=== PATIENT | female | born 1950 | race American Indian/Alaskan Native ===

== ENCOUNTER 2022-04-17 11:59 | Inpatient (IN) | payer MEDICARE ==
[2022-04-17] MEDS ORDERED: ACETAMINOPHEN 325 MG TAB PO PRN ×2 (16:59→18:42)
[2022-04-17] MEDS ORDERED: HYDROcodone/ACETAMINOPHEN 5-325 MG TAB PO PRN ×2 (16:59→17:24)
[2022-04-17] MEDS ORDERED: BUTALB/ACETAMINOPHEN/CAFFEINE TAB PO PRN (17:04)
[2022-04-17] MEDS ORDERED: CYCLOBENZAPRINE 10 MG TAB PO PRN ×2 (17:04→18:33)
--- NOTE | 2022-04-17 17:27 | Event Note ---
Date: 04/17/22 All records have been reviewed and greater than 45 minutes was invested in record review. Also called outside hospital for clarification. Our pharmacy is having difficulty sourcing Cipro for the patient's UTI. Upon calling the outside hospital the nursing staff informed me that the culture showed normal beverley.Will obtain UA C&S upon admission to determine whether or not the patient truly has a urinary tract infection that needs to be treated and will treat appropriately if so. Otherwise this looks like possible skin beverley contaminant. All orders have been entered, discussed patient with nursing prior to arrival, will see patient in AM for H&P.
[2022-04-18] MEDS ORDERED: LEVOTHYROXINE 150 MCG TAB PO SCH (06:00)
[2022-04-18 06:28] LABS: Alanine Aminotransferase 15 units/L (7-56); Albumin 4.4 g/dL (3.9-5); BUN/Creatinine Ratio 22; Blood Urea Nitrogen 22 mg/dL (7-17); Calcium 9.7 mg/dL (8.4-10.2); Hemolysis Index 30
[2022-04-18 06:58] LABS: Bacteria,Urine 1+ /HPF (Negative); Mucus,Urine FEW /HPF
[2022-04-18] MEDS: LEVOTHYROXINE 150 MCG TAB PO SCH (07:06)
[2022-04-18 07:46] LABS: Bilirubin,Urine 1+ (Negative); Color,Urine Yellow (Yellow)
[2022-04-18 07:47] LABS: Blood,Urine 1+ (Negative); Urobilinogen,Urine 0.2 mg/dL (<2.0)
[2022-04-18 07:55] LABS: Ictotest,Urine Negative (Negative)
[2022-04-18 08:32] LABS: Eosinophils # (Auto) 0.1 K/mm3 (0.0-0.4); Eosinophils % (Auto) 2.1 % (0.0-4.3); Monocytes # (Auto) 0.4 K/mm3 (0.0-0.8); Monocytes % (Auto) 8.1 % (0.0-7.3)
[2022-04-18 08:48] LABS: Basophils % (Auto) 0.7 % (0.0-1.8); Hematocrit 33.7 % (30.3-42.9); Hemoglobin 10.9 gm/dl (10.1-14.3); Lymphocytes # (Auto) 1.4 K/mm3 (1.2-5.4); Lymphocytes % (Auto) 30.8 % (13.4-35.0); Mean Corpuscular HGB Conc 32 % (30-34); Mean Corpuscular Volume 97 fl (79-97); Red Blood Count 3.49 M/mm3 (3.65-5.03); Red Cell Distribution Width 15.5 % (13.2-15.2)
[2022-04-18] MEDS: hydroCHLOROthiazide 12.5 MG CAP PO SCH (09:10)
[2022-04-18] MEDS: LOSARTAN 50 MG TAB PO SCH (09:10)
[2022-04-18] MEDS: amLODIPine 10 MG TAB PO SCH (09:11)
--- NOTE | 2022-04-18 09:51 | History and Physical Report ---
History of Present Illness Date: 04/18/22 Date of admission: 04/18/22 04:24 Chief Complaint: Right parietal intracerebral hemorrhage History of present illness: 71-year-old female who presented to [facility] with left-sided weakness after originally going to urgent care for knee pain. She became dizzy and was off balance at urgent care and was sent to [facility]. Noted to have left- sided weakness and the CT head showed a small right parietal intracerebral hemorrhage. Blood pressure was elevated to a high of 213 systolic. Patient was started on Cardene drip and blood pressure was controlled. CT head showed hyperdensities at bilateral parietal lobes and left inferior frontal lobe encephalomalacia. CTA head neck showed no significant abnormalities. MRI brain showed acute hemorrhage in the posterior parietal lobes and multiple areas of suspected old intracranial hemorrhages along with a older deep left frontal lobe infarct. At some point, patient was complaining of dysuria at the outside hospital, she was started on Cipro. Unfortunately Cipro was not available currently at this hospital. Nursing staff at outside hospital was contacted to obtain urine culture and sensitivity results however staff told me that normal skin beverley grew out. No records are available other than what was given verbally. UA C&S was obtained upon admission, appears to show 1+ blood, bacteria and leukocyte esterase. We will await culture results and treat if needed. Unfortunately patient arrived at 4 AM, she was scheduled for 6 PM yesterday afternoon. She does state that she is tired, did not get much sleep and has had issues with the call light since arriving. Have discussed with staff and they have requested maintenance investigate the call light issues. After the patient was medically stabilized they were transferred for further rehabilitation. All available medical records have been reviewed. Plan of care was discussed with patient. Past History Past Medical History: arthritis, CAD, hypertension, hypothyroidism, migraines Past Surgical History: Other (Several abdominal surgeries including ex lap) Social history: lives with family. denies: smoking, alcohol abuse Family history: CAD, hypertension, stroke Medications and Allergies Allergies Allergy/AdvReac Type Severity Reaction Status Date / Time No Known Allergies Allergy Unverified 04/17/22 18:17 Active Meds: Active Medications Acetaminophen (Acetaminophen 325 Mg Tab) 650 mg PO Q4H PRN PRN Reason: Pain, Mild (1-3), FEVER 100.5 Acetaminophen/Butalbital/Caffeine (Butalb/Acetaminophen/Caffeine Tab) 1 tab PO Q6H PRN PRN Reason: Headache Hydrocodone Bitart/Acetaminophen (Hydrocodone/Acetaminophen 5-325 Mg Tab) 1 each PO Q6H PRN PRN Reason: Pain, Moderate (4-6) Amlodipine Besylate (Amlodipine 10 Mg Tab) 10 mg PO QDAY [facility] Last Admin: 04/18/22 09:11 Dose: 10 mg Atorvastatin Calcium (Atorvastatin 20 Mg Tab) 20 mg PO QHS [facility] Last Admin: 04/18/22 08:00 Dose: Not Given Cyclobenzaprine HCl (Cyclobenzaprine 10 Mg Tab) 10 mg PO QHS PRN PRN Reason: Muscle Spasm Hydrochlorothiazide (Hydrochlorothiazide 12.5 Mg Cap) 12.5 mg PO QDAY [facility] Last Admin: 04/18/22 09:10 Dose: 12.5 mg Levothyroxine Sodium (Levothyroxine 150 Mcg Tab) 300 mcg PO DAILY@0600 [facility] Last Admin: 04/18/22 07:06 Dose: 300 mcg Losartan Potassium (Losartan 50 Mg Tab) 50 mg PO QDAY [facility] Last Admin: 04/18/22 09:10 Dose: 50 mg Review of Systems All systems: negative (ROS negative for 10 systems except as noted below with pertinent positives and negatives.) Constitutional: no fever, no chills Ears, nose, mouth and throat: headache, no decreased hearing Cardiovascular: no chest pain, no rapid/irregular heart beat, no edema Respiratory: no cough, no shortness of breath Gastrointestinal: no nausea, no diarrhea, no constipation Genitourinary Female: dysuria (Previously, seems resolved now) Musculoskeletal: arthritis, no arm numbness/tingling, no leg numbness/tingling Integumentary: no rash, no pruritis, no wounds Neurological: ataxia, lack of coordination, gait dysfunction Psychiatric: no memory loss, no confusion Exam - Exam Narrative exam: MUSCULOSKELETAL SPECIALTY EXAM CONSTITUTIONAL: Well developed, well nourished, appropriately groomed, obese. RIGHT hand dominant. LYMPHATIC: No appreciable abnormalities palpable in neck RESPIRATORY: Clear to auscultation bilaterally, no increased work of breathing CARDIOVASCULAR: Regular Rate/ Rhythm, no swelling, edema or tenderness in BUE or BLE. Pulses palpable in all extremities. All extremities warm. GI: + bowel sounds, soft, NTTP, nondistended. INTEGUMENTARY: Normal, no lesion, rash, masses or bruising noted in extremities. MUSCULOSKELETAL: Tenderness to palpation in bilateral knees at medial joint line and anterior. Otherwise, BUE and BLE normal without defect, crepitus, subluxation, effusion, arthritic changes or TTP. R 4+ /5 L 4+ /5 ROM within normal limit Tone within normal limit NEURO: CN II : Visual jones full to confrontation CN II, III : PERRL CN III, IV, : EOMI CN V : Facial sensation intact CN VII : Left facial droop CN VIII : Hearing intact to finger rustle CN IX, X : Palate/uvula elevate midline, phonation normal CN XI : Intact shoulder shrug and head rotation CN XII : Tongue protrudes midline Sensation intact in all extremities without extinction. Reflexes 2+ bilaterally at biceps, brachioradialis and patella. No clonus at ankles. Coordination impaired on the right upper extremity, normal on the left, no dysmetria noted. No tremor noted in 4 extremities. Naming and repetition intact. Follows 2 step commands. Aphasia not appreciated Dysarthria not appreciated Dysphagia not appreciated Neglect not appreciated POSTURE and GAIT: Sitting posture good. Balance and gait deferred until seen with therapy. PSYCH: Alert, oriented x3, affect appears euthymic. Insight appears intact. - Constitutional Vitals: Vital Signs - 12hr 04/18/22 04/18/22 04/18/22 04:00 04:42 09:04 Temperature 98.2 F 98.5 F Pulse Rate 82 84 Respiratory 16 18 Rate Blood Pressure 154/93 Blood Pressure 135/88 [Left] O2 Sat by Pulse 98 98 99 Oximetry 04/18/22 09:10 Temperature Pulse Rate Respiratory Rate Blood Pressure 154/93 Blood Pressure [Left] O2 Sat by Pulse Oximetry - Labs CBC & Chem 7: 04/18/22 05:04 04/18/22 05:04 Labs: Laboratory Results - last 72 hr 04/17/22 04/18/22 04/18/22 04:50 05:04 05:04 WBC 4.7 RBC 3.49 L Hgb 10.9 Hct 33.7 MCV 97 MCH 31 MCHC 32 RDW 15.5 H Lymph % (Auto) 30.8 [place] % (Auto) 8.1 H Eos % (Auto) 2.1 Baso % (Auto) 0.7 Lymph # (Auto) 1.4 [place] # (Auto) 0.4 Eos # (Auto) 0.1 Baso # (Auto) 0.0 Seg Neutrophils % 58.3 Seg Neutrophils # 2.7 Sodium 146 H Potassium 4.2 Chloride 109.0 H Carbon Dioxide 25 Anion Gap 16 BUN 22 H Creatinine 1.0 Estimated GFR > 60 BUN/Creatinine Ratio 22 Glucose 98 Calcium 9.7 Total Bilirubin < 0.20 AST 26 ALT 15 Alkaline Phosphatase 69 Total Protein 7.9 Albumin 4.4 Albumin/Globulin Ratio 1.3 Urine Color Yellow Urine Turbidity Clear Urine pH 6.0 Ur Specific [place] 1.015 Urine Protein 30 mg/dl Urine Glucose (UA) Negative Urine Ketones 1+ Urine Blood 1+ Urine Nitrite Negative Ur Reducing Substances Not Reportable Urine Bilirubin 1+ Urine Ictotest Negative Urine Urobilinogen 0.2 Ur Leukocyte Esterase 1+ Urine WBC (Auto) 2.0 Urine RBC (Auto) 12.0 U Epithel Cells (Auto) 3.0 Urine Bacteria (Auto) 1+ Urine Mucus Few Assessment and Plan Assessment and plan: Patient was assessed and evaluated for Acute Inpatient Rehab Unit. Due to the patients above-mentioned medical complexity, along with decreased functional mobility and self care, this patient continues to require and be appropriate for a comprehensive, multidisciplinary [id number] rehabilitation program. These needs cannot be met in an outpatient or other less intensive setting. The patient would continue to benefit from skilled therapy intervention for at least 3 hours per day, five days a week, with techniques specific to the needs of the patient to improve function, activities of daily living, and reintegration into the community. The patient continues to require: -- OT to improve ROM, self-care, and learn use of adaptive equipment -- PT to improve strength and balance, functional transfers, and ambulation with energy conservation techniques to improve functional mobility -- 24 hour RN to ensure and prevent skin breakdown, promote progressive independence while ensuring safety, ensure education regarding medications, and incorporation of the rehabilitation at the bedside -- 24 hour Agent Broker to coordinate this interdisciplinary program, and to manage/prevent complications as a result of the patients medical comorbidities. -Plan of care by day 4 -Weekly team conferences With such a program, there is a reasonable certainty that the goals individualized for this patient can be achieved within the specified length of stay. Intraparenchymal cerebral hemorrhage: Continue to monitor patient for worsening neurologic deficits. Control blood pressure closely. Avoid antithrombotics/anticoagulants. Patient will need to follow-up with neurology after discharge. Have discussed prognosis and recovery timeline with the patient. Continue PT/OT to improve patient's ability to perform mobility and ADLs with increasing independence with decreasing reliance on caregivers. Hypertension: Continue medication. Monitor blood pressure. Adjust medications as needed for normotension. Hold for hypotension. Goal SBP <140. Hypothyroidism: Continue medications. Monitor and adjust if needed. UTI?: Patient was started on Cipro for UTI at outside hospital. Apparently we have had an issue obtaining Cipro at this hospital as I was informed by pharmacy. Once I saw this I called the outside hospital to obtain the culture and sensitivity from the patient's UTI however nursing stated that the cultures showed normal skin beverley. Cultures were not sent with the patient when she admitted. I did order a UA with culture and sensitivity upon admission and the UA currently shows 1+ blood, leukocyte esterase, and bacteria.. Will await culture and sensitivity and treat if needed. Patient did state that she was having dysuria at the outside hospital but is denying any issues currently. Bilateral knee arthritis: Patient states that buckling of the knees was her primary issue that she had initially went to the urgent care for. She has received injections of steroids recently from her PCP which were not effective. I discussed knee OA and the prognosis/typical treatment modalities. We will obtain x-rays to see how bad this is. Recommend that the patient follow-up with orthopedics or interventional PM&R for further injections and consideration of viscosupplementation if appropriate. Arthritis may very well limit the patient's mobility and recovery with rehab. We will continue to monitor and treat with modalities as appropriate. Migraines: Continue Fioricet as needed. CAD: Monitor for any further issues. 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 ADL dysfunction: OT will work on improving ability to perform ADLs (including assistive devices) to increase independence and decrease caregiver burden and improve functional transfers and mobility training. Difficulty walking: PT will work on gait training and proper use of assistive devices and advance as appropriate to use of stairs and outside ambulation on uneven surfaces. Unsteadiness on feet: PT will work on improving static and dynamic sitting and standing balance as well as proper use of assistive devices to decrease risk of falls. Abnormality of gait: PT will work to improve safety and efficiency of gait through neuromotor training and gait training along with instruction on proper use of assistive devices. Muscle weakness: PT & OT will work on strengthening exercises to improve functional strength including mixture of closed and open kinetic chain exercises. Debility: PT & OT will work on improving overall functional status to improve participation with ADLs, mobility and social involvement. Fatigue: PT & OT will work on improving endurance through aerobic exercises and therapeutic activity while monitoring patients tolerance for activity and vital signs as needed. DVT ppx: Contraindicated due to hemorrhagic CVA Pain: Continue physical modalities in therapy and pain medications as needed to achieve functional pain control. Sleep: Monitor and address as needed. Bowel: Monitor and address as needed. Appetite: Monitor and address as needed. Discharge planning: Pending therapy progress and care plan meeting. Will continue discussion with therapy team, SW, patient and family. Restrictions/ Precautions: Falls WB status: FWB Functional Hx: ADLs: Independent Cognition: Independent Mobility: No AD Barriers to Discharge: Decreased mobility and ability to perform self care, balance deficits, weakness Estimated Length of Stay: 1014 days Discharge Destination: Home with family POST ADMISSION PHYSICIAN EVALUATION I have examined the patient and find that functional status, medical condition and appropriateness for IRF admission are essentially unchanged from those described in the preadmission screening. Will monitor for worsening neurologic function, recurrent cerebral hemorrhage, increasing weakness, dysphagia, dysarthria DVT/PE, bowel and bladder complications and complications due to hypertension, knee OA, and electrolyte abnormalities. Will attempt to avoid occurrence of these issues or treat them if they present themselves.
[2022-04-18] MEDS ORDERED: LOSARTAN 50 MG TAB PO SCH (10:00)
[2022-04-18] MEDS ORDERED: hydroCHLOROthiazide 12.5 MG CAP PO SCH (10:00)
[2022-04-18] MEDS ORDERED: amLODIPine 10 MG TAB PO SCH (10:00)
--- NOTE | 2022-04-18 10:57 | XRay Report ---
BILATERAL KNEES 6 VIEWS INDICATION / CLINICAL INFORMATION: Pain and buckling of the knees. COMPARISON: None available. FINDINGS: BONES and JOINT(S): No acute fracture or subluxation. 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 SOFT TISSUES: No significant abnormality. ADDITIONAL FINDINGS: None. IMPRESSION: 1. No acute findings. 2. Mild osteoarthritis. Signer Name: Tino Baptiste MD Signed: 04/18/2022 10:53 AM Workstation Name: [id number]
[2022-04-18] MEDS: BUTALB/ACETAMINOPHEN/CAFFEINE TAB PO PRN (11:01)
[2022-04-18 12:28] LABS: Platelet Count 236 K/mm3 (140-440)
[2022-04-19] MEDS: BUTALB/ACETAMINOPHEN/CAFFEINE TAB PO PRN ×3 (04:01→21:58)
[2022-04-19] MEDS: LEVOTHYROXINE 150 MCG TAB PO SCH (06:04)
[2022-04-19] MEDS: LOSARTAN 50 MG TAB PO SCH (09:03)
[2022-04-19] MEDS: hydroCHLOROthiazide 12.5 MG CAP PO SCH (09:03)
[2022-04-19] MEDS: amLODIPine 10 MG TAB PO SCH (09:03)
[2022-04-20] MEDS: LEVOTHYROXINE 150 MCG TAB PO SCH (05:37)
[2022-04-20 06:31] LABS: Hematocrit 35.1 % (30.3-42.9); Hemoglobin 11.3 gm/dl (10.1-14.3); Mean Corpuscular HGB Conc 32 % (30-34); Mean Corpuscular Volume 96 fl (79-97); Platelet Count 281 K/mm3 (140-440); Red Blood Count 3.65 M/mm3 (3.65-5.03); Red Cell Distribution Width 15.3 % (13.2-15.2)
[2022-04-20 06:44] LABS: BUN/Creatinine Ratio 23; Blood Urea Nitrogen 21 mg/dL (7-17); Hemolysis Index 2
--- NOTE | 2022-04-20 08:15 | Progress Note ---
Subjective Date of service: 04/20/22 Principal diagnosis: Right parietal intracerebral hemorrhage Interval history: 71-year-old female who presented to [facility] with left-sided weakness afte r originally going to urgent care for knee pain. She became dizzy and was off balance at urgent care and was sent to [facility]. Noted to have left-sided weakness and the CT head showed a small right parietal intracerebral hemorrhage. Blood pressure was elevated to a high of 213 systolic. Patient was started on Cardene drip and blood pressure was controlled. CT head showed hyperdensities at bilateral parietal lobes and left inferior frontal lobe encephalomalacia. CTA head neck showed no significant abnormalities. MRI brain showed acute hemorrhage in the posterior parietal lobes and multiple areas of suspected old intracranial hemorrhages along with a older deep left frontal lobe infarct. At some point, patient was complaining of dysuria at the outside hospital, she was started on Cipro. Unfortunately Cipro was not available currently at this hospital. Nursing staff at outside hospital was contacted to obtain urine culture and sensitivity results however staff told me that normal skin beverley grew out. No records are available other than what was given verbally. UA C&S was obtained upon admission, appears to show 1+ blood, bacteria and leukocyte esterase. We will await culture results and treat if needed. Unfortunately patient arrived at 4 AM, she was scheduled for 6 PM yesterday afternoon. She does state that she is tired, did not get much sleep and has had issues with the call light since arriving. Have discussed with staff and they have requested maintenance investigate the call light issues. After the patient was medically stabilized they were transferred for further rehabilitation. All available medical records have been reviewed. Plan of care was discussed with patient. Interval History: Patient is participating in therapy and making reasonable progress. Taking rest breaks as needed. -BM. Denies pain, palpitations, dyspnea, cough, N/V, weakness. States knee pain is better today. Patient had a lot of questions this morning about the possibility of going home and how quickly she would be able to go home. In total, 37 minutes was invested in patient care today with greater than 50% of that time being spent counseling the patient. Intraparenchymal cerebral hemorrhage: Neurologically stable. No signs of worsening neurologic changes. Continue to monitor Hypertension: Stable and within good range. Continue to monitor and adjust medications for goal blood pressure less than 140/90. Hypothyroidism: Continue medications, stable UTI?: No growth to date on repeat urine. We will hold off starting antibiotics Bilateral knee arthritis: X-rays reviewed, appears very mild. Discussed with patient and will start Voltaren gel bilaterally. Grind test negative bilaterally. Recommend follow-up with interventional PM&R or orthopedics for consideration of injections Migraines: Continue Fioricet as needed Constipation: Medications available, have scheduled bisacodyl. Monitor for CAD: Patient unable to take aspirin currently, monitor for any worsening symptoms ADL and mobility deficits: Balance is very poor, patient is up and moving around in the room independently. Have cautioned her against getting up without the rapy/staff being available. Continue work with therapy to improve independence All records, vitals, labs and medications were reviewed. No other issues per patient, nursing or therapy. Objective - Exam Narrative Exam: MUSCULOSKELETAL SPECIALTY EXAM CONSTITUTIONAL: Well developed, well nourished, appropriately groomed, obese. RIGHT hand dominant. RESPIRATORY: Clear to auscultation bilaterally, no increased work of breathing CARDIOVASCULAR: Regular Rate/ Rhythm, no swelling, edema or tenderness in BUE or BLE. All extr emities warm. GI: + bowel sounds, soft, NTTP, nondistended. INTEGUMENTARY: Normal, no lesion, rash, masses or bruising noted in extremities. MUSCULOSKELETAL: Tenderness to palpation in bilateral knees at medial joint line and anterior, grind test negative bilaterally. Otherwise, BUE and BLE normal without defect, crepitus, subluxation, effusion, arthritic changes or TTP. R 4+ /5 L 4+ /5 ROM within normal limit Tone within normal limit NEURO: CN VII : Left facial droop Sensation intact in all extremities without extinction. No tremor noted in 4 extremities. Naming and repetition intact. Follows 2 step commands. Aphasia not appreciated Dysarthria not appreciated Dysphagia not appreciated Neglect not appreciated POSTURE and GAIT: Sitting posture good. Balance and gait deferred until seen with therapy. PSYCH: Alert, oriented x3, affect appears euthymic. Insight appears intact. - Constitutional Vitals: Vital Signs - 12hr 04/19/22 04/19/22 21:39 23:00 Temperature 98.1 F Pulse Rate 81 Blood Pressure 134/88 [Left] O2 Sat by Pulse 6 L Oximetry - Allied health notes Allied health notes reviewed: nursing, PT, OT FIMS assessment as documented by PT/OT/ST: Transfers Bed/Chair/Wheelchair Transfers 4. Minimal Assistance (Patient = 75% or more. FIM Score Needs touching.) Toilet Transfers FIM Score 5. Supervision (Needs supervision or cueing.) Locomotion- Stairs Stairs FIM Score 2. Maximal Assistance (Patient = 25% or more, 4- 6 stairs.) Locomotion- walk/wheelchair Ambulation Distance 50 Walking FIM Score 2. Maximal Assistance (Patient = 25% or more. Minimum of 50 ft.) Wheelchair FIM Score 2. Maximal Assistance (Patient = 25% or more. Minimum of 50 ft.) - Labs CBC & Chem 7: 04/20/22 05:57 04/20/22 05:57 Labs: Laboratory Results - last 72 hr 04/17/22 04/18/22 04/18/22 04:50 05:04 05:04 WBC 4.7 RBC 3.49 L Hgb 10.9 Hct 33.7 MCV 97 MCH 31 MCHC 32 RDW 15.5 H Plt Count 236 Lymph % (Auto) 30.8 [place] % (Auto) 8.1 H Eos % (Auto) 2.1 Baso % (Auto) 0.7 Lymph # (Auto) 1.4 [place] # (Auto) 0.4 Eos # (Auto) 0.1 Baso # (Auto) 0.0 Seg Neutrophils % 58.3 Seg Neutrophils # 2.7 Sodium 146 H Potassium 4.2 Chloride 109.0 H Carbon Dioxide 25 Anion Gap 16 BUN 22 H Creatinine 1.0 Estimated GFR > 60 BUN/Creatinine Ratio 22 Glucose 98 Calcium 9.7 Total Bilirubin < 0.20 AST 26 ALT 15 Alkaline Phosphatase 69 Total Protein 7.9 Albumin 4.4 Albumin/Globulin Ratio 1.3 Urine Color Yellow Urine Turbidity Clear Urine pH 6.0 Ur Specific [place] 1.015 Urine Protein 30 mg/dl Urine Glucose (UA) Negative Urine Ketones 1+ Urine Blood 1+ Urine Nitrite Negative Ur Reducing Substances Not Reportable Urine Bilirubin 1+ Urine Ictotest Negative Urine Urobilinogen 0.2 Ur Leukocyte Esterase 1+ Urine WBC (Auto) 2.0 Urine RBC (Auto) 12.0 U Epithel Cells (Auto) 3.0 Urine Bacteria (Auto) 1+ Urine Mucus Few 04/20/22 04/20/22 05:57 05:57 WBC 4.4 L RBC 3.65 Hgb 11.3 Hct 35.1 MCV 96 MCH 31 MCHC 32 RDW 15.3 H Plt Count 281 Lymph % (Auto) [place] % (Auto) Eos % (Auto) Baso % (Auto) Lymph # (Auto) [place] # (Auto) Eos # (Auto) Baso # (Auto) Seg Neutrophils % Seg Neutrophils # Sodium 143 Potassium 4.0 Chloride 102.4 Carbon Dioxide 28 Anion Gap 17 BUN 21 H Creatinine 0.9 Estimated GFR > 60 BUN/Creatinine Ratio 23 Glucose 98 Calcium 10.0 Total Bilirubin AST ALT Alkaline Phosphatase Total Protein Albumin Albumin/Globulin Ratio Urine Color Urine Turbidity Urine pH Ur Specific [place] Urine Protein Urine Glucose (UA) Urine Ketones Urine Blood Urine Nitrite Ur Reducing Substances Urine Bilirubin Urine Ictotest Urine Urobilinogen Ur Leukocyte Esterase Urine WBC (Auto) Urine RBC (Auto) U Epithel Cells (Auto) Urine Bacteria (Auto) Urine Mucus Assessment and Plan Intraparenchymal cerebral hemorrhage: Continue to monitor patient for worsening neurologic deficits. Control blood pressure closely. Avoid antithrombotics/anticoagulants. Patient will need to follow-up with neurology after discharge. Have discussed prognosis and recovery timeline with the patient. Continue PT/OT to improve patient's ability to perform mobility and ADLs with increasing independence with decreasing reliance on caregivers. Hypertension: Continue medication. Monitor blood pressure. Adjust medications as needed for normotension. Hold for hypotension. Goal SBP <140. Hypothyroidism: Continue medications. Monitor and adjust if needed. UTI?: Patient was started on Cipro for UTI at outside hospital. Apparently we have had an issue obtaining Cipro at this hospital as I was informed by pharmacy. Once I saw this I called the outside hospital to obtain the culture and sensitivity from the patient's UTI however nursing stated that the cultures showed normal skin beverley. Cultures were not sent with the patient when she admitted. I did order a UA with culture and sensitivity upon admission and the UA currently shows 1+ blood, leukocyte esterase, and bacteria.. Will await culture and sensitivity and treat if needed. Patient did state that she was having dysuria at the outside hospital but is denying any issues currently. Bilateral knee arthritis: Patient states that buckling of the knees was her primary issue that she had initially went to the urgent care for. She has received injections of steroids recently from her PCP which were not effective. I discussed knee OA and the prognosis/typical treatment modalities. Recommend that the patient follow-up with orthopedics or interventional PM&R for further steroid injections and consideration of viscosupplementation if appropriate. We will continue to monitor and treat with modalities as appropriate. Voltaren gel ordered, x-rays reviewed and show mild arthritis bilaterally Migraines: Continue Fioricet as needed. CAD: Monitor for any further issues. 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 ADL dysfunction: OT will work on improving ability to perform ADLs (including assistive devices) to increase independence and decrease caregiver burden and improve functional transfers and mobility training. Difficulty walking: PT will work on gait training and proper use of assistive devices and advance as appropriate to use of stairs and outside ambulation on uneven surfaces. Unsteadiness on feet: PT will work on improving static and dynamic sitting and standing balance as well as proper use of assistive devices to decrease risk of falls. Abnormality of gait: PT will work to improve safety and efficiency of gait through neuromotor training and gait training along with instruction on proper use of assistive devices. Muscle weakness: PT & OT will work on strengthening exercises to improve functional strength including mixture of closed and open kinetic chain exercises. Debility: PT & OT will work on improving overall functional status to improve participation with ADLs, mobility and social involvement. Fatigue: PT & OT will work on improving endurance through aerobic exercises and therapeutic activity while monitoring patients tolerance for activity and vital signs as needed. DVT ppx: Contraindicated due to hemorrhagic CVA Pain: Continue physical modalities in therapy and pain medications as needed to achieve functional pain control. Sleep: Monitor and address as needed. Bowel: Monitor and address as needed. Medications have been scheduled and as ne eded medications are available as well, monitor Appetite: Monitor and address as needed. Discharge planning: Pending therapy progress and care plan meeting. Will continue discussion with therapy team, SW, patient and family. Restrictions/ Precautions: Falls WB status: FWB Functional Hx: ADLs: Independent Cognition: Independent Mobility: No AD Barriers to Discharge: Decreased mobility and ability to perform self care, balance deficits, weakness Estimated Length of Stay: 1014 days Discharge Destination: Home with family
[2022-04-20] MEDS ORDERED: POLYETHYLENE GLYCOL 3350 17 GM POWDER PO PRN (10:00)
[2022-04-20] MEDS: amLODIPine 10 MG TAB PO SCH (12:40)
[2022-04-20] MEDS: LOSARTAN 50 MG TAB PO SCH (12:40)
[2022-04-20] MEDS: hydroCHLOROthiazide 12.5 MG CAP PO SCH (12:40)
[2022-04-20] MEDS: BUTALB/ACETAMINOPHEN/CAFFEINE TAB PO PRN ×2 (12:41→21:55)
[2022-04-20] MEDS: DICLOFENAC SODIUM 1% TOPICAL GEL 100 GM TP SCH ×2 (18:37→21:48)
[2022-04-21] MEDS: LEVOTHYROXINE 150 MCG TAB PO SCH (07:54)
[2022-04-21] MEDS: DICLOFENAC SODIUM 1% TOPICAL GEL 100 GM TP SCH ×3 (07:55→23:03)
[2022-04-21] MEDS: BUTALB/ACETAMINOPHEN/CAFFEINE TAB PO PRN ×2 (08:00→22:59)
[2022-04-21] MEDS: amLODIPine 10 MG TAB PO SCH (15:08)
[2022-04-21] MEDS: LOSARTAN 50 MG TAB PO SCH (15:08)
[2022-04-21] MEDS: hydroCHLOROthiazide 12.5 MG CAP PO SCH (15:09)
--- NOTE | 2022-04-21 16:01 | Progress Note ---
Subjective Date of service: 04/21/22 Principal diagnosis: Right parietal intracerebral hemorrhage Interval history: 71-year-old female who presented to [facility] with left-sided weakness afte r originally going to urgent care for knee pain. She became dizzy and was off balance at urgent care and was sent to [facility]. Noted to have left-sided weakness and the CT head showed a small right parietal intracerebral hemorrhage. Blood pressure was elevated to a high of 213 systolic. Patient was started on Cardene drip and blood pressure was controlled. CT head showed hyperdensities at bilateral parietal lobes and left inferior frontal lobe encephalomalacia. CTA head neck showed no significant abnormalities. MRI brain showed acute hemorrhage in the posterior parietal lobes and multiple areas of suspected old intracranial hemorrhages along with a older deep left frontal lobe infarct. At some point, patient was complaining of dysuria at the outside hospital, she was started on Cipro. Unfortunately Cipro was not available currently at this hospital. Nursing staff at outside hospital was contacted to obtain urine culture and sensitivity results however staff told me that normal skin beverley grew out. No records are available other than what was given verbally. UA C&S was obtained upon admission, appears to show 1+ blood, bacteria and leukocyte esterase. We will await culture results and treat if needed. Unfortunately patient arrived at 4 AM, she was scheduled for 6 PM yesterday afternoon. She does state that she is tired, did not get much sleep and has had issues with the call light since arriving. Have discussed with staff and they have requested maintenance investigate the call light issues. After the patient was medically stabilized they were transferred for further rehabilitation. All available medical records have been reviewed. Plan of care was discussed with patient. Interval History: Patient is participating in therapy and making reasonable progress. Taking rest breaks as needed. -BM. Denies pain, palpitations, dyspnea, cough, N/V, weakness. Intraparenchymal cerebral hemorrhage: Neurologically stable. No signs of worsening neurologic changes. Continue to monitor Hypertension: Stable and within good range. Continue to monitor and adjust medications for goal blood pressure less than 140/90. Hypothyroidism: Continue medications, stable UTI?: No growth to date on repeat urine. We will hold off starting antibiotics Bilateral knee arthritis: X-rays reviewed, appears very mild. Discussed with patient and started Voltaren gel bilaterally, seems to be working fairly well. Grind test negative bilaterally. Recommend follow-up with interventional PM&R or orthopedics for consideration of injections Migraines: Continue Fioricet as needed Constipation: Medications available, have scheduled bisacodyl. Monitor for CAD: Patient unable to take aspirin currently, monitor for any worsening symptoms ADL and mobility deficits: Balance is very poor, patient is up and moving around in the room independently. Have cautioned her against getting up without therapy/staff being available. Continue work with therapy to improve independence All records, vitals, labs and medications were reviewed. No other issues per patient, nursing or therapy. Patient discussed during team conference today. Making reasonable progress and is able to ambulate with a rolling walker. 08/26 on [place]. Mostly contact- guard with ADLs. Still has some issues with balance and buckling of the knees. We will continue working with the patient to improve her ability to perform ADLs and self-care and mobility as independently as possible in order to discharge her safely home. In total, 39 minutes was invested in patient care today including greater than 50% of that time counseling the patient on her condition and coordinating care with staff to determine further needed therapy. We will likely look to discharge patient sometime next week pending her continued improvement. Patient does state that she feels more comfortable with a rolling walker versus a cane Objective - Exam Narrative Exam: MUSCULOSKELETAL SPECIALTY EXAM CONSTITUTIONAL: Well developed, well nourished, appropriately groomed, obese. RIGHT hand dominant. RESPIRATORY: Clear to auscultation bilaterally, no increased work of breathing CARDIOVASCULAR: Regular Rate/ Rhythm, no swelling, edema or tenderness in BUE or BLE. All extremities warm. GI: + bowel sounds, soft, NTTP, nondistended. INTEGUMENTARY: Normal, no lesion, rash, masses or bruising noted in extremities. MUSCULOSKELETAL: Tenderness to palpation in bilateral knees at medial joint line and anterior. Otherwise, BUE and BLE normal without defect, crepitus, subluxation, effusion, arthritic changes or TTP. R 4+ /5 L 4+ /5 ROM within normal limit Tone within normal limit NEURO: CN VII : Left facial droop Sensation intact in all extremities without extinction. No tremor noted in 4 extremities. Naming and repetition intact. Follows 2 step commands. Aphasia not appreciated Dysarthria not appreciated Dysphagia not appreciated Neglect not appreciated POSTURE and GAIT: Sitting posture good. PSYCH: Alert, oriented x3, affect appears euthymic. Insight appears intact. - Allied health notes Allied health notes reviewed: nursing, PT, OT FIMS assessment as documented by PT/OT/ST: Transfers Bed/Chair/Wheelchair Transfers 4. Minimal Assistance (Patient = 75% or more. FIM Score Needs touching.) Toilet Transfers FIM Score 5. Supervision (Needs supervision or cueing.) Locomotion- Stairs Stairs FIM Score 2. Maximal Assistance (Patient = 25% or more, 4- 6 stairs.) Locomotion- walk/wheelchair Ambulation Distance 50 Walking FIM Score 2. Maximal Assistance (Patient = 25% or more. Minimum of 50 ft.) Wheelchair FIM Score 2. Maximal Assistance (Patient = 25% or more. Minimum of 50 ft.) - Labs CBC & Chem 7: 04/20/22 05:57 04/20/22 05:57 Labs: Laboratory Results - last 72 hr 04/20/22 04/20/22 05:57 05:57 WBC 4.4 L RBC 3.65 Hgb 11.3 Hct 35.1 MCV 96 MCH 31 MCHC 32 RDW 15.3 H Plt Count 281 Sodium 143 Potassium 4.0 Chloride 102.4 Carbon Dioxide 28 Anion Gap 17 BUN 21 H Creatinine 0.9 Estimated GFR > 60 BUN/Creatinine Ratio 23 Glucose 98 Calcium 10.0 Assessment and Plan Intraparenchymal cerebral hemorrhage: Continue to monitor patient for worsening neurologic deficits. Control blood pressure closely. Avoid antithrombotics/anticoagulants. Patient will need to follow-up with neurology after discharge. Have discussed prognosis and recovery timeline with the patient. Continue PT/OT to improve patient's ability to perform mobility and ADLs with increasing independence with decreasing reliance on caregivers. Hypertension: Continue medication. Monitor blood pressure. Adjust medications as needed for normotension. Hold for hypotension. Goal SBP <140. Hypothyroidism: Continue medications. Monitor and adjust if needed. UTI?: Patient was started on Cipro for UTI at outside hospital. Apparently we have had an issue obtaining Cipro at this hospital as I was informed by pharmacy. Once I saw this I called the outside hospital to obtain the culture and sensitivity from the patient's UTI however nursing stated that the cultures showed normal skin beverley. Cultures were not sent with the patient when she admitted. I did order a UA with culture and sensitivity upon admission and the UA currently shows 1+ blood, leukocyte esterase, and bacteria.. Will await culture and sensitivity and treat if needed. Patient did state that she was having dysuria at the outside hospital but is denying any issues currently. Bilateral knee arthritis: Patient states that buckling of the knees was her primary issue that she had initially went to the urgent care for. She has received injections of steroids recently from her PCP which were not effective. I discussed knee OA and the prognosis/typical treatment modalities. Recommend that the patient follow-up with orthopedics or interventional PM&R for further steroid injections and consideration of viscosupplementation if appropriate. We will continue to monitor and treat with modalities as appropriate. Voltaren gel ordered, x-rays reviewed and show mild arthritis bilaterally Migraines: Continue Fioricet as needed. CAD: Monitor for any further issues. 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 ADL dysfunction: OT will work on improving ability to perform ADLs (including assistive devices) to increase independence and decrease caregiver burden and improve functional transfers and mobility training. Difficulty walking: PT will work on gait training and proper use of assistive devices and advance as appropriate to use of stairs and outside ambulation on uneven surfaces. Unsteadiness on feet: PT will work on improving static and dynamic sitting and standing balance as well as proper use of assistive devices to decrease risk of falls. Abnormality of gait: PT will work to improve safety and efficiency of gait through neuromotor training and gait training along with instruction on proper use of assistive devices. Muscle weakness: PT & OT will work on strengthening exercises to improve functional strength including mixture of closed and open kinetic chain exercises. Debility: PT & OT will work on improving overall functional status to improve participation with ADLs, mobility and social involvement. Fatigue: PT & OT will work on improving endurance through aerobic exercises and therapeutic activity while monitoring patients tolerance for activity and vital signs as needed. DVT ppx: Contraindicated due to hemorrhagic CVA Pain: Continue physical modalities in therapy and pain medications as needed to achieve functional pain control. Sleep: Monitor and address as needed. Bowel: Monitor and address as needed. Medications have been scheduled and as needed medications are available as well, monitor Appetite: Monitor and address as needed. Discharge planning: Pending therapy progress and care plan meeting. Will continue discussion with therapy team, SW, patient and family. Will likely discharge next week pending further improvement. Patient will need a rolling walker at this time. We will discuss further needs as we get closer to discharge. Restrictions/ Precautions: Falls WB status: FWB Functional Hx: ADLs: Independent Cognition: Independent Mobility: No AD Barriers to Discharge: Decreased mobility and ability to perform self care, balance deficits, weakness Estimated Length of Stay: 1014 days Discharge Destination: Home with family
--- NOTE | 2022-04-21 18:39 | IRU Plan of Care ---
Interdisciplinary Plan of Care - IPOC IRU INTERDISCIPLINARY PLAN: [facility] Inpatient Rehab Unit Plan of Care IRU Interdisciplinary Care Plan Start: 04/18/22 07:36 Freq: Status: Active Protocol: Document 04/21/22 16:25 TH (Rec: 04/21/22 16:32 TH [id number]) IRU Interdisciplinary Care Plan Therapy Services Therapy Services Will Include: Physical Therapy,Occupational Query Text:Patient will be seen for a Therapy minimum of 3 hours of daily therapy 5 out of 7 days a week. Therapy intensity may be adjusted within a 7 consecutive day period to effectively serve the individual needs of the patient. Treatment Frequency/Intensity/Duration Treatment Frequency 5x/week Treatment Intensity 3 HOURS PER DAY Treatment Duration 10-14 DAYS Problem Area: Eating/Swallowing Eating/Swallowing Outcomes Eating/Swallowing Interventions Problem Area: Bathing/Grooming Bathing/Grooming Outcomes Improve Cook w/ Grooming,Improve Cook w/ Bathing Bathing/Grooming Interventions ADL Training,Use of Assistive Devices,Therapeutic Exercise, Therapeutic Activity, Neuromuscular Re-Education, Balance Work,Activity Tolerance Work,Patient/ Caregiver Education Problem Area: Dressing Dressing Outcomes Improve Cook w/ UB Dressing,Improve Cook w/ LB Dressing Dressing Outcomes Improve Cook w/ UB Dressing,Improve Cook w/ LB Dressing Problem Area: Mobility Mobility Outcomes Improve Cook w/ Bed Mobility,Improve Cook w/ Ambulation,Improve Cook w/ Stairs/Curb, Improve Cook w/ Wheelchair Mobility Interventions Therapeutic Exercise, Neuromuscular Re-Ed.,Use of Assistive Devices,Patient/ Caregiver Education,Bed Mobility Work,Gait Training,W/ C Mobility Work Problem Area: Transfers Transfers Outcomes Improve Cook w/ Bed Transfers,Improve Cook w/ Toilet Transfers,Improve Cook w/ Tub/Shower Transfers,Improve Cook w/ Car Transfers Transfers Interventions Transfer Training,Therapeutic Exercise,Neuromuscular Re- Education,Visual/Perceptual Training,Activity Tolerance Work,Modalities,Use of Assistive Devices,Patient/ Caregiver Education Problem Area: Bowel/Bladder Managment Bowel/Bladder Outcomes Bowel/Bladder Interventions Problem Area: Toileting Toileting Outcomes Improve Cook w/ Toileting Toileting Interventions ADL Training,Balance Work,Use of Assistive Devices,Patient/ Caregiver Education Problem Area: Nutrition Nutrition Outcomes Nutrition Interventions Problem Area: Comprehension Comprehension Outcomes Comprehension Interventions Problem Area: Expression Expression Outcomes Expression Interventions Problem Area: Problem Solving Problem Solving Outcomes Problem Solving Interventions Problem Area: Memory Memory Outcomes Memory Interventions Problem Area: Pain Management Pain Management Outcomes Demonstrate/Verbalize Pain Strategies Pain Management Interventions Medication Management,Stress Management,Positioning/Turning ,Patient/Caregiver Education Problem Area: Knowledge Deficits Knowledge Deficits Outcomes Verbalize Understanding of S/S of Stroke Knowledge Deficits Interventions Disease/Injury/Sx. Intervention Education, Medication Use Education,Body Mechanics/Joint Protection Education,Health Maintainence Education,Safety Education, Energy Conservation Education Problem Area: Skin/Tissue Integrity Skin/Tissue Integrity Outcomes Skin/Tissue Integrity Interventions Problem Area: Social Interaction Social Interaction Outcomes Social Interaction Interventions Problem Area: Adjustment to Disability Adjustment to Disability Outcomes Adjustment to Disability Interventions Problem Area: Discharge Concerns Discharge Concerns Outcomes Discharge w/ Necessary Equipment,Have Home Health/ Outpatient Services Discharge Concerns Interventions Discharge Planning,Equipment Assessment, Acquisition and Placement,Family/Caregiver Training Problem Area: Community Reintegration Community Reintegration Outcomes Community Reintegration Interventions Problem Area: Home Management Home Management Outcomes Improve Cook w/ Home Management Home Management Interventions Meal Preparation,Clothing Care ,Activity Tolerance Work,House Cleaning,Shopping Problem Area: Safety Safety Outcomes Provide Safe Environment, Demonstrate Good Safety w/ Transfers/Mobility Safety Interventions Identify Fall Risk,[place] to Environment,Reduce Environmental Hazards Problem Area: Medication Education Medication Education Outcomes Patient/Caregiver will Verbalize Understanding of Medications Medication Education Interventions Explain Administration/Side Effects/Interactions Problem Area: Diabetes Education Diabetes Education Outcomes Diabetes Education Interventions Problem Area: Oxygenation Oxygenation Outcomes Oxygenation Interventions Problem Area: Cardiovascular Cardiovascular Outcomes Maintain or Improve Cardiovascular Status Cardiovascular Interventions Assess Vital Signs at least Every 4 hours,Cardiac Monitoring, EKG and ABG as Ordered. Physician Only Medical Prognosis and Rehabilitation Good prognosis, good rehab potential Potential (Completed by Physician) Interdisciplinary Problem List Interdisciplinary Problem List Interdisciplinary Problem List Impaired Bathing/Grooming, Query Text:Answers will Trigger Problems Impaired Dressing,Impaired and Outcomes on Worklist. Transfers,Impaired Toileting, Impaired Problem Solving,Pain Management This plan of care has been developed based on the findings from the pre- admission assessment, post admission physician evaluation, information gathered from the assessments from all therapy disciplines and other pertinent clinicians. The plan of care has been reviewed and discussed in collaboration with the interdisciplinary team. The plan of care will be reviewed and updated at least weekly.
[2022-04-22] MEDS: LEVOTHYROXINE 150 MCG TAB PO SCH (05:26)
--- NOTE | 2022-04-22 07:29 | Progress Note ---
Subjective Date of service: 04/22/22 Principal diagnosis: Right parietal intracerebral hemorrhage Interval history: 71-year-old female who presented to [facility] with left-sided weakness afte r originally going to urgent care for knee pain. She became dizzy and was off balance at urgent care and was sent to [facility]. Noted to have left-sided weakness and the CT head showed a small right parietal intracerebral hemorrhage. Blood pressure was elevated to a high of 213 systolic. Patient was started on Cardene drip and blood pressure was controlled. CT head showed hyperdensities at bilateral parietal lobes and left inferior frontal lobe encephalomalacia. CTA head neck showed no significant abnormalities. MRI brain showed acute hemorrhage in the posterior parietal lobes and multiple areas of suspected old intracranial hemorrhages along with a older deep left frontal lobe infarct. At some point, patient was complaining of dysuria at the outside hospital, she was started on Cipro. Unfortunately Cipro was not available currently at this hospital. Nursing staff at outside hospital was contacted to obtain urine culture and sensitivity results however staff told me that normal skin beverley grew out. No records are available other than what was given verbally. UA C&S was obtained upon admission, appears to show 1+ blood, bacteria and leukocyte esterase. We will await culture results and treat if needed. Unfortunately patient arrived at 4 AM, she was scheduled for 6 PM yesterday afternoon. She does state that she is tired, did not get much sleep and has had issues with the call light since arriving. Have discussed with staff and they have requested maintenance investigate the call light issues. After the patient was medically stabilized they were transferred for further rehabilitation. All available medical records have been reviewed. Plan of care was discussed with patient. Interval History: Patient is participating in therapy and making reasonable progress. Taking rest breaks as needed. -BM, bisacodyl is scheduled and MiraLAX is available, have discussed with patient. She is having flatus and denies nausea/vomiting.. Denies pain, palpitations, dyspnea, cough, N/V, weakness. Intraparenchymal cerebral hemorrhage: Neurologically stable. No signs of worsening neurologic changes. Continue to monitor Hypertension: Stable and within good range. Continue to monitor and adjust medications for goal blood pressure less than 140/90. Hypothyroidism: Continue medications, stable UTI?: No growth to date on repeat urine. We will hold off starting antibiotics Bilateral knee arthritis: X-rays reviewed, appears very mild. Discussed with patient and started Voltaren gel bilaterally, seems to be working fairly well. Grind test negative bilaterally. Recommend follow-up with interventional PM&R or orthopedics for consideration of injections Migraines: Continue Fioricet as needed Constipation: Medications available, have scheduled bisacodyl. Monitor for resolution CAD: Patient unable to take aspirin currently, monitor for any worsening symptoms ADL and mobility deficits: Balance is very poor, patient is up and moving around in the room independently. Have cautioned her against getting up without therapy/staff being available. Continue work with therapy to improve independence All records, vitals, labs and medications were reviewed. No other issues per patient, nursing or therapy. Objective - Exam Narrative Exam: MUSCULOSKELETAL SPECIALTY EXAM CONSTITUTIONAL: Well developed, well nourished, appropriately groomed, obese. RIGHT hand dominant. RESPIRATORY: Clear to auscultation bilaterally, no increased work of breathing CARDIOVASCULAR: Regular Rate/ Rhythm, no swelling, edema or tenderness in BUE or BLE. All extremities warm. GI: + bowel sounds, soft, NTTP, nondistended. INTEGUMENTARY: Normal, no lesion, rash, masses or bruising noted in extremities. MUSCULOSKELETAL: Tenderness to palpation in bilateral knees at medial joint line and anterior. Otherwise, BUE and BLE normal without defect, crepitus, subluxation, effusion, arthritic changes or TTP. R 4+ /5 L 4+ /5 ROM within normal limit Tone within normal limit NEURO: CN VII : Left facial droop Sensation intact in all extremities without extinction. No tremor noted in 4 extremities. Naming and repetition intact. Follows 2 step commands. Aphasia not appreciated Dysarthria not appreciated Dysphagia not appreciated Neglect not appreciated POSTURE and GAIT: Sitting posture good. Remains high fall risk, Tinetti Balance 08/26 PSYCH: Alert, oriented x3, affect appears euthymic. Insight appears intact. Does have decreased safety awareness at times, - Constitutional Vitals: Vital Signs - 12hr 04/21/22 04/21/22 04/22/22 21:51 23:00 05:03 Temperature 97.5 F L 97.7 F Pulse Rate 86 80 Respiratory 16 16 Rate Blood Pressure 118/80 Blood Pressure 127/79 [Left] O2 Sat by Pulse 97 99 98 Oximetry - Allied health notes Allied health notes reviewed: nursing, PT, OT FIMS assessment as documented by PT/OT/ST: Transfers Bed/Chair/Wheelchair Transfers 4. Minimal Assistance (Patient = 75% or more. FIM Score Needs touching.) Toilet Transfers FIM Score 5. Supervision (Needs supervision or cueing.) Locomotion- Stairs Stairs FIM Score 2. Maximal Assistance (Patient = 25% or more, 4- 6 stairs.) Locomotion- walk/wheelchair Ambulation Distance 50 Walking FIM Score 2. Maximal Assistance (Patient = 25% or more. Minimum of 50 ft.) Wheelchair FIM Score 2. Maximal Assistance (Patient = 25% or more. Minimum of 50 ft.) - Labs CBC & Chem 7: 04/20/22 05:57 04/20/22 05:57 Labs: Laboratory Results - last 72 hr 04/20/22 04/20/22 05:57 05:57 WBC 4.4 L RBC 3.65 Hgb 11.3 Hct 35.1 MCV 96 MCH 31 MCHC 32 RDW 15.3 H Plt Count 281 Sodium 143 Potassium 4.0 Chloride 102.4 Carbon Dioxide 28 Anion Gap 17 BUN 21 H Creatinine 0.9 Estimated GFR > 60 BUN/Creatinine Ratio 23 Glucose 98 Calcium 10.0 Assessment and Plan Intraparenchymal cerebral hemorrhage: Continue to monitor patient for worsening neurologic deficits. Control blood pressure closely. Avoid antithrombotics/anticoagulants. Patient will need to follow-up with neurology after discharge. Have discussed prognosis and recovery timeline with the patient. Continue PT/OT to improve patient's ability to perform mobility and ADLs with increasing independence with decreasing reliance on caregivers. Hypertension: Continue medication. Monitor blood pressure. Adjust medications as needed for normotension. Hold for hypotension. Goal SBP <140. Hypothyroidism: Continue medications. Monitor and adjust if needed. UTI?: Patient was started on Cipro for UTI at outside hospital. Apparently we have had an issue obtaining Cipro at this hospital as I was informed by pharmacy. Once I saw this I called the outside hospital to obtain the culture and sensitivity from the patient's UTI however nursing stated that the cultures showed normal skin beverley. Cultures were not sent with the patient when she admitted. I did order a UA with culture and sensitivity upon admission and the UA currently shows 1+ blood, leukocyte esterase, and bacteria.. Culture NGTD. Patient did state that she was having dysuria at the outside hospital but is denying any issues currently. Bilateral knee arthritis: Patient states that buckling of the knees was her primary issue that she had initially went to the urgent care for. She has received injections of steroids recently from her PCP which were not effective. I discussed knee OA and the prognosis/typical treatment modalities. Recommend that the patient follow-up with orthopedics or interventional PM&R for further steroid injections and consideration of viscosupplementation if appropriate. We will continue to monitor and treat with modalities as appropriate. Voltaren gel ordered, x-rays reviewed and show mild arthritis bilaterally Migraines: Continue Fioricet as needed. CAD: Monitor for any further issues. 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 Constipation: Medications scheduled and available as needed, denies any nausea vomiting. Passing flatus. Monitor ADL dysfunction: OT will work on improving ability to perform ADLs (including assistive devices) to increase independence and decrease caregiver burden and improve functional transfers and mobility training. Difficulty walking: PT will work on gait training and proper use of assistive devices and advance as appropriate to use of stairs and outside ambulation on uneven surfaces. Unsteadiness on feet: PT will work on improving static and dynamic sitting and standing balance as well as proper use of assistive devices to decrease risk of falls. Abnormality of gait: PT will work to improve safety and efficiency of gait through neuromotor training and gait training along with instruction on proper use of assistive devices. Muscle weakness: PT & OT will work on strengthening exercises to improve functional strength including mixture of closed and open kinetic chain exercises. Debility: PT & OT will work on improving overall functional status to improve participation with ADLs, mobility and social involvement. Fatigue: PT & OT will work on improving endurance through aerobic exercises and therapeutic activity while monitoring patients tolerance for activity and vital signs as needed. DVT ppx: Contraindicated due to hemorrhagic CVA Pain: Continue physical modalities in therapy and pain medications as needed to achieve functional pain control. Sleep: Monitor and address as needed. Bowel: Monitor and address as needed. Medications have been scheduled and as needed medications are available as well, monitor Appetite: Monitor and address as needed. Discharge planning: Pending therapy progress and care plan meeting. Will continue discussion with therapy team, SW, patient and family. Will likely discharge next week pending further improvement. Patient will need a rolling walker at this time. We will discuss further needs as we get closer to discharge. Restrictions/ Precautions: Falls WB status: FWB Functional Hx: ADLs: Independent Cognition: Independent Mobility: No AD Barriers to Discharge: Decreased mobility and ability to perform self care, balance deficits, weakness Estimated Length of Stay: 1014 days Discharge Destination: Home with family
[2022-04-22] MEDS: LOSARTAN 50 MG TAB PO SCH (10:25)
[2022-04-22] MEDS: amLODIPine 10 MG TAB PO SCH (10:25)
[2022-04-22] MEDS: BUTALB/ACETAMINOPHEN/CAFFEINE TAB PO PRN ×2 (10:25→21:43)
[2022-04-22] MEDS: hydroCHLOROthiazide 12.5 MG CAP PO SCH (10:25)
[2022-04-22] MEDS: DICLOFENAC SODIUM 1% TOPICAL GEL 100 GM TP SCH ×3 (10:31→21:43)
[2022-04-23] MEDS: LEVOTHYROXINE 150 MCG TAB PO SCH (06:04)
--- NOTE | 2022-04-23 07:50 | Progress Note ---
Subjective Date of service: 04/23/22 Principal diagnosis: Right parietal intracerebral hemorrhage Interval history: 71-year-old female who presented to [facility] with left-sided weakness afte r originally going to urgent care for knee pain. She became dizzy and was off balance at urgent care and was sent to [facility]. Noted to have left-sided weakness and the CT head showed a small right parietal intracerebral hemorrhage. Blood pressure was elevated to a high of 213 systolic. Patient was started on Cardene drip and blood pressure was controlled. CT head showed hyperdensities at bilateral parietal lobes and left inferior frontal lobe encephalomalacia. CTA head neck showed no significant abnormalities. MRI brain showed acute hemorrhage in the posterior parietal lobes and multiple areas of suspected old intracranial hemorrhages along with a older deep left frontal lobe infarct. At some point, patient was complaining of dysuria at the outside hospital, she was started on Cipro. Unfortunately Cipro was not available currently at this hospital. Nursing staff at outside hospital was contacted to obtain urine culture and sensitivity results however staff told me that normal skin beverley grew out. No records are available other than what was given verbally. UA C&S was obtained upon admission, appears to show 1+ blood, bacteria and leukocyte esterase. We will await culture results and treat if needed. Unfortunately patient arrived at 4 AM, she was scheduled for 6 PM yesterday afternoon. She does state that she is tired, did not get much sleep and has had issues with the call light since arriving. Have discussed with staff and they have requested maintenance investigate the call light issues. After the patient was medically stabilized they were transferred for further rehabilitation. All available medical records have been reviewed. Plan of care was discussed with patient. Interval History: Patient is participating in therapy and making reasonable progress. Taking rest breaks as needed. +BM, bisacodyl is scheduled and MiraLAX is available, have discussed with patient, patient states that she is now having hard stools and wants a softener added. She is having flatus and denies nausea/vomiting.. Denies pain, palpitations, dyspnea, cough, N/V, weakness. Intraparenchymal cerebral hemorrhage: Neurologically stable. No signs of worse raeann neurologic changes. Continue to monitor. Decreased safety awareness, patient found up in room again without help. I asked her if she needed help with anything and she stated no she was just going to the restroom. Hypertension: Stable and within good range. Continue to monitor and adjust me dications for goal blood pressure less than 140/90. Hypothyroidism: Continue medications, stable Bilateral knee arthritis: X-rays reviewed, appears very mild. Discussed with patient and started Voltaren gel bilaterally, seems to be working fairly well. Grind test negative bilaterally. Recommend follow-up with interventional PM&R or orthopedics for consideration of injections. No complaints of buckling currently Migraines: Continue Fioricet as needed Constipation: Medications available, have scheduled bisacodyl. Small bowel movement but very difficult to pass, requesting Colace monitor for resolution CAD: Patient unable to take aspirin currently, monitor for any worsening symptoms ADL and mobility deficits: Balance is very poor, patient is up and moving around in the room independently. Have cautioned her against getting up without therapy/staff being available. Continue work with therapy to improve independence All records, vitals, labs and medications were reviewed. No other issues per patient, nursing or therapy. Objective - Exam Narrative Exam: MUSCULOSKELETAL SPECIALTY EXAM CONSTITUTIONAL: Well developed, well nourished, appropriately groomed, obese. RIGHT hand dominant. RESPIRATORY: Clear to auscultation bilaterally, no increased work of breathing CARDIOVASCULAR: Regular Rate/ Rhythm, no swelling, edema or tenderness in BUE or BLE. All extremities warm. GI: + bowel sounds, soft, NTTP, nondistended. INTEGUMENTARY: Normal, no lesion, rash, masses or bruising noted in extremities. MUSCULOSKELETAL: Tenderness to palpation in bilateral knees at medial joint line and anterior. Otherwise, BUE and BLE normal without defect, crepitus, subluxation, effusion, arthritic changes or TTP. R 4+ /5 L 4+ /5 ROM within normal limit Tone within normal limit NEURO: CN VII : Left facial droop Sensation intact in all extremities without extinction. No tremor noted in 4 extremities. Naming and repetition intact. Follows 2 step commands. Aphasia not appreciated Dysarthria not appreciated Dysphagia not appreciated Neglect not appreciated POSTURE and GAIT: Sitting posture good. Remains high fall risk, Tinetti Balance 08/26 PSYCH: Alert, oriented x3, affect appears euthymic. Insight appears intact. Does have decreased safety awareness at times - Constitutional Vitals: Vital Signs - 12hr 04/22/22 04/22/22 04/23/22 21:16 23:00 03:20 Temperature 98.1 F 97.7 F Pulse Rate 84 83 Respiratory 14 18 16 Rate Blood Pressure 130/80 116/86 O2 Sat by Pulse 93 97 97 Oximetry - Allied health notes Allied health notes reviewed: nursing, PT, OT FIMS assessment as documented by PT/OT/ST: Transfers Bed/Chair/Wheelchair Transfers 4. Minimal Assistance (Patient = 75% or more. FIM Score Needs touching.) Toilet Transfers FIM Score 5. Supervision (Needs supervision or cueing.) Locomotion- Stairs Stairs FIM Score 2. Maximal Assistance (Patient = 25% or more, 4- 6 stairs.) Locomotion- walk/wheelchair Ambulation Distance 50 Walking FIM Score 2. Maximal Assistance (Patient = 25% or more. Minimum of 50 ft.) Wheelchair FIM Score 2. Maximal Assistance (Patient = 25% or more. Minimum of 50 ft.) - Labs CBC & Chem 7: 04/20/22 05:57 04/20/22 05:57 Assessment and Plan Intraparenchymal cerebral hemorrhage: Continue to monitor patient for worsening neurologic deficits. Control blood pressure closely. Avoid antithrombotics/anticoagulants. Patient will need to follow-up with neurology after discharge. Have discussed prognosis and recovery timeline with the patient. Continue PT/OT to improve patient's ability to perform mobility and ADLs with increasing independence with decreasing reliance on caregivers. Hypertension: Continue medication. Monitor blood pressure. Adjust medications as needed for normotension. Hold for hypotension. Goal SBP <140. Hypothyroidism: Continue medications. Monitor and adjust if needed. UTI?: Resolved. Patient was started on Cipro for UTI at outside hospital. Apparently we have had an issue obtaining Cipro at this hospital as I was informed by pharmacy. Once I saw this I called the outside hospital to obtain the culture and sensitivity from the patient's UTI however nursing stated that the cultures showed normal skin beverley. Cultures were not sent with the patient when she admitted. I did order a UA with culture and sensitivity upon admission and the UA currently shows 1+ blood, leukocyte esterase, and bacteria. Culture NGTD. Patient did state that she was having dysuria at the outside hospital but is denying any issues currently. Bilateral knee arthritis: Patient states that buckling of the knees was her primary issue that she had initially went to the urgent care for. She has received injections of steroids recently from her PCP which were not effective. I discussed knee OA and the prognosis/typical treatment modalities. Recommend that the patient follow-up with orthopedics or interventional PM&R for further steroid injections and consideration of viscosupplementation if appropriate. We will continue to monitor and treat with modalities as appropriate. Voltaren gel ordered, x-rays reviewed and show mild arthritis bilaterally. Seems to be doing somewhat better, no buckling when talking to therapy Migraines: Continue Fioricet as needed. CAD: Monitor for any further issues. 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 Constipation: Medications scheduled and available as needed, denies any nausea vomiting. Passing flatus. Monitor ADL dysfunction: OT will work on improving ability to perform ADLs (including assistive devices) to increase independence and decrease caregiver burden and improve functional transfers and mobility training. Difficulty walking: PT will work on gait training and proper use of assistive devices and advance as appropriate to use of stairs and outside ambulation on uneven surfaces. Unsteadiness on feet: PT will work on improving static and dynamic sitting and standing balance as well as proper use of assistive devices to decrease risk of falls. Abnormality of gait: PT will work to improve safety and efficiency of gait through neuromotor training and gait training along with instruction on proper use of assistive devices. Muscle weakness: PT & OT will work on strengthening exercises to improve functional strength including mixture of closed and open kinetic chain exercises. Debility: PT & OT will work on improving overall functional status to improve participation with ADLs, mobility and social involvement. Fatigue: PT & OT will work on improving endurance through aerobic exercises and therapeutic activity while monitoring patients tolerance for activity and vital signs as needed. DVT ppx: Contraindicated due to hemorrhagic CVA Pain: Continue physical modalities in therapy and pain medications as needed to achieve functional pain control. Sleep: Monitor and address as needed. Bowel: Monitor and address as needed. Medications have been scheduled and as needed medications are available as well, monitor Appetite: Monitor and address as needed. Discharge planning: Pending therapy progress and care plan meeting. Will co ntinue discussion with therapy team, SW, patient and family. Will likely discharge next week pending further improvement. Patient will need a rolling walker at this time. We will discuss further needs as we get closer to discharge. Restrictions/ Precautions: Falls WB status: FWB Functional Hx: ADLs: Independent Cognition: Independent Mobility: No AD Barriers to Discharge: Decreased mobility and ability to perform self care, balance deficits, weakness Estimated Length of Stay: 1014 days Discharge Destination: Home with family
[2022-04-23] MEDS: DICLOFENAC SODIUM 1% TOPICAL GEL 100 GM TP SCH ×3 (11:34→20:12)
[2022-04-23] MEDS: amLODIPine 10 MG TAB PO SCH (11:34)
[2022-04-23] MEDS: LOSARTAN 50 MG TAB PO SCH (11:35)
[2022-04-23] MEDS: DOCUSATE SODIUM 100 MG CAP PO SCH ×2 (11:35→21:56)
[2022-04-23] MEDS: hydroCHLOROthiazide 12.5 MG CAP PO SCH (11:36)
[2022-04-23] MEDS: BUTALB/ACETAMINOPHEN/CAFFEINE TAB PO PRN ×2 (11:36→18:37)
[2022-04-23] MEDS: HYDROcodone/ACETAMINOPHEN 5-325 MG TAB PO PRN (18:21)
[2022-04-24 06:43] LABS: Hematocrit 31.1 % (30.3-42.9); Hemoglobin 10.6 gm/dl (10.1-14.3); Mean Corpuscular HGB Conc 34 % (30-34); Mean Corpuscular Volume 95 fl (79-97); Platelet Count 245 K/mm3 (140-440); Red Blood Count 3.28 M/mm3 (3.65-5.03); Red Cell Distribution Width 15.1 % (13.2-15.2)
[2022-04-24] MEDS: LEVOTHYROXINE 150 MCG TAB PO SCH (06:43)
[2022-04-24 06:56] LABS: BUN/Creatinine Ratio 26; Blood Urea Nitrogen 21 mg/dL (7-17); Calcium 9.5 mg/dL (8.4-10.2); Hemolysis Index 36
--- NOTE | 2022-04-24 09:24 | Progress Note ---
Subjective Date of service: 04/24/22 Principal diagnosis: Right parietal intracerebral hemorrhage Interval history: 71-year-old female who presented to [facility] with left-sided weakness afte r originally going to urgent care for knee pain. She became dizzy and was off balance at urgent care and was sent to [facility]. Noted to have left-sided weakness and the CT head showed a small right parietal intracerebral hemorrhage. Blood pressure was elevated to a high of 213 systolic. Patient was started on Cardene drip and blood pressure was controlled. CT head showed hyperdensities at bilateral parietal lobes and left inferior frontal lobe encephalomalacia. CTA head neck showed no significant abnormalities. MRI brain showed acute hemorrhage in the posterior parietal lobes and multiple areas of suspected old intracranial hemorrhages along with a older deep left frontal lobe infarct. At some point, patient was complaining of dysuria at the outside hospital, she was started on Cipro. Unfortunately Cipro was not available currently at this hospital. Nursing staff at outside hospital was contacted to obtain urine culture and sensitivity results however staff told me that normal skin beverley grew out. No records are available other than what was given verbally. UA C&S was obtained upon admission, appears to show 1+ blood, bacteria and leukocyte esterase. We will await culture results and treat if needed. Unfortunately patient arrived at 4 AM, she was scheduled for 6 PM yesterday afternoon. She does state that she is tired, did not get much sleep and has had issues with the call light since arriving. Have discussed with staff and they have requested maintenance investigate the call light issues. After the patient was medically stabilized they were transferred for further rehabilitation. All available medical records have been reviewed. Plan of care was discussed with patient. Interval History: Patient is participating in therapy and making reasonable progress. Taking rest breaks as needed. +BM, bisacodyl is scheduled and MiraLAX is available, have discussed with patient, patient states that she is now having hard stools and wants a softener added. She is having flatus and denies nausea/vomiting. Denies pain, palpitations, dyspnea, cough, N/V, weakness. Continues to have service concerns. Would like to go home, based on what I see from therapies notes likely would be okay to go home next Wednesday or Wednesday. Will discuss with therapy Intraparenchymal cerebral hemorrhage: Neurologically stable. No signs of worsening neurologic changes. Continue to monitor. Decreased safety awareness, patient found up in room again without help. I asked her if she needed help with anything and she stated no she was just going to the restroom. Hypertension: Stable and within good range. Continue to monitor and adjust medications for goal blood pressure less than 140/90. Hypothyroidism: Continue medications, stable Bilateral knee arthritis: X-rays reviewed, appears very mild. Discussed with patient and started Voltaren gel bilaterally, seems to be working fairly well. Grind test negative bilaterally. Recommend follow-up with interventional PM&R or orthopedics for consideration of injections. No complaints of buckling curr ently Migraines: Continue Fioricet as needed Constipation: Medications available, have scheduled bisacodyl. Continue Colace and monitor CAD: Patient unable to take aspirin currently, monitor for any worsening symptoms ADL and mobility deficits: Balance is very poor, patient is up and moving around in the room independently. Have cautioned her against getting up without therapy/staff being available. Continue work with therapy to improve independence All records, vitals, labs and medications were reviewed. No other issues per patient, nursing or therapy. Objective - Exam Narrative Exam: MUSCULOSKELETAL SPECIALTY EXAM CONSTITUTIONAL: Well developed, well nourished, appropriately groomed, obese. RIGHT hand dominant. RESPIRATORY: Clear to auscultation bilaterally, no increased work of breathing CARDIOVASCULAR: Regular Rate/ Rhythm, no swelling, edema or tenderness in BUE or BLE. All extremities warm. GI: + bowel sounds, soft, NTTP, nondistended. INTEGUMENTARY: Normal, no lesion, rash, masses or bruising noted in extremities. MUSCULOSKELETAL: Tenderness to palpation in bilateral knees at medial joint line and anterior. Otherwise, BUE and BLE normal without defect, crepitus, subluxation, effusion, arthritic changes or TTP. R 4+ /5 L 4+ /5 ROM within normal limit Tone within normal limit NEURO: CN VII : Left facial droop Sensation intact in all extremities without extinction. No tremor noted in 4 extremities. Naming and repetition intact. Follows 2 step commands. Aphasia not appreciated Dysarthria not appreciated Dysphagia not appreciated Neglect not appreciated POSTURE and GAIT: Sitting posture good. Remains high fall risk, Tinetti Balance 08/26 PSYCH: Alert, oriented x3, affect appears euthymic. Insight appears intact. Does have decreased safety awareness at times - Constitutional Vitals: Vital Signs - 12hr 04/23/22 04/23/22 04/24/22 23:00 23:42 08:00 Temperature 98 F 97.7 F Pulse Rate 73 88 Respiratory 18 17 Rate Blood Pressure 93/62 131/84 [Left] O2 Sat by Pulse 97 97 96 Oximetry - Allied health notes Allied health notes reviewed: nursing, PT, OT FIMS assessment as documented by PT/OT/ST: Transfers Bed/Chair/Wheelchair Transfers 4. Minimal Assistance (Patient = 75% or more. FIM Score Needs touching.) Toilet Transfers FIM Score 5. Supervision (Needs supervision or cueing.) Locomotion- Stairs Stairs FIM Score 2. Maximal Assistance (Patient = 25% or more, 4- 6 stairs.) Locomotion- walk/wheelchair Ambulation Distance 50 Walking FIM Score 2. Maximal Assistance (Patient = 25% or more. Minimum of 50 ft.) Wheelchair FIM Score 2. Maximal Assistance (Patient = 25% or more. Minimum of 50 ft.) - Labs CBC & Chem 7: 04/24/22 Unknown 04/24/22 Unknown Labs: Laboratory Results - last 72 hr 04/24/22 04/24/22 Unknown Unknown WBC 3.6 L RBC 3.28 L Hgb 10.6 Hct 31.1 MCV 95 MCH 32 MCHC 34 RDW 15.1 Plt Count 245 Sodium 140 Potassium 3.9 Chloride 105.1 Carbon Dioxide 22 Anion Gap 17 BUN 21 H Creatinine 0.8 Estimated GFR > 60 BUN/Creatinine Ratio 26 Glucose 92 Calcium 9.5 Assessment and Plan Intraparenchymal cerebral hemorrhage: Continue to monitor patient for worsening neurologic deficits. Control blood pressure closely. Avoid antithrombotics/ant icoagulants. Patient will need to follow-up with neurology after discharge. Have discussed prognosis and recovery timeline with the patient. Continue PT/OT to improve patient's ability to perform mobility and ADLs with increasing independence with decreasing reliance on caregivers. Hypertension: Continue medication. Monitor blood pressure. Adjust medications as needed for normotension. Hold for hypotension. Goal SBP <140. Hypothyroidism: Continue medications. Monitor and adjust if needed. UTI?: Resolved. Patient was started on Cipro for UTI at outside hospital. Apparently we have had an issue obtaining Cipro at this hospital as I was informed by pharmacy. Once I saw this I called the outside hospital to obtain the culture and sensitivity from the patient's UTI however nursing stated that the cultures showed normal skin beverley. Cultures were not sent with the patient when she admitted. I did order a UA with culture and sensitivity upon admission and the UA currently shows 1+ blood, leukocyte esterase, and bacteria. Culture NGTD. Patient did state that she was having dysuria at the outside hospital but is denying any issues currently. Bilateral knee arthritis: Patient states that buckling of the knees was her primary issue that she had initially went to the urgent care for. She has received injections of steroids recently from her PCP which were not effective. I discussed knee OA and the prognosis/typical treatment modalities. Recommend that the patient follow-up with orthopedics or interventional PM&R for further steroid injections and consideration of viscosupplementation if appropriate. We will continue to monitor and treat with modalities as appropriate. Voltaren gel ordered, x-rays reviewed and show mild arthritis bilaterally. Seems to be doing somewhat better, no buckling with therapy Migraines: Continue Fioricet as needed. CAD: Monitor for any further issues. 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 Constipation: Medications scheduled and available as needed, denies any nausea vomiting. Passing flatus. Monitor ADL dysfunction: OT will work on improving ability to perform ADLs (including assistive devices) to increase independence and decrease caregiver burden and improve functional transfers and mobility training. Difficulty walking: PT will work on gait training and proper use of assistive devices and advance as appropriate to use of stairs and outside ambulation on uneven surfaces. Unsteadiness on feet: PT will work on improving static and dynamic sitting and standing balance as well as proper use of assistive devices to decrease risk of falls. Abnormality of gait: PT will work to improve safety and efficiency of gait through neuromotor training and gait training along with instruction on proper use of assistive devices. Muscle weakness: PT & OT will work on strengthening exercises to improve functional strength including mixture of closed and open kinetic chain exercises. Debility: PT & OT will work on improving overall functional status to improve participation with ADLs, mobility and social involvement. Fatigue: PT & OT will work on improving endurance through aerobic exercises and therapeutic activity while monitoring patients tolerance for activity and vital signs as needed. DVT ppx: Contraindicated due to hemorrhagic CVA Pain: Continue physical modalities in therapy and pain medications as needed to achieve functional pain control. Sleep: Monitor and address as needed. Bowel: Monitor and address as needed. Medications have been scheduled and as needed medications are available as well, monitor Appetite: Monitor and address as needed. Discharge planning: Pending therapy progress and care plan meeting. Will continue discussion with therapy team, SW, patient and family. Will likely discharge next week pending further improvement. Patient will need a rolling walker at this time. We will discuss further needs as we get closer to discharge. Restrictions/ Precautions: Falls WB status: FWB Functional Hx: ADLs: Independent Cognition: Independent Mobility: No AD Barriers to Discharge: Decreased mobility and ability to perform self care, balance deficits, weakness Estimated Length of Stay: 1014 days Discharge Destination: Home with family
[2022-04-24] MEDS: hydroCHLOROthiazide 12.5 MG CAP PO SCH (10:32)
[2022-04-24] MEDS: amLODIPine 10 MG TAB PO SCH (10:32)
[2022-04-24] MEDS: DICLOFENAC SODIUM 1% TOPICAL GEL 100 GM TP SCH ×2 (10:32→20:59)
[2022-04-24] MEDS: LOSARTAN 50 MG TAB PO SCH (10:33)
[2022-04-24] MEDS: DOCUSATE SODIUM 100 MG CAP PO SCH ×2 (10:33→20:59)
[2022-04-24] MEDS: BUTALB/ACETAMINOPHEN/CAFFEINE TAB PO PRN ×2 (10:33→21:04)
[2022-04-24] MEDS: HYDROcodone/ACETAMINOPHEN 5-325 MG TAB PO PRN (21:00)
[2022-04-25] MEDS: LEVOTHYROXINE 150 MCG TAB PO SCH (06:15)
[2022-04-25] MEDS: BUTALB/ACETAMINOPHEN/CAFFEINE TAB PO PRN ×2 (06:17→18:31)
[2022-04-25] MEDS: HYDROcodone/ACETAMINOPHEN 5-325 MG TAB PO PRN ×2 (08:18→22:06)
[2022-04-25] MEDS: hydroCHLOROthiazide 12.5 MG CAP PO SCH (11:04)
[2022-04-25] MEDS: DICLOFENAC SODIUM 1% TOPICAL GEL 100 GM TP SCH ×3 (11:04→22:03)
[2022-04-25] MEDS: amLODIPine 10 MG TAB PO SCH (11:04)
[2022-04-25] MEDS: LOSARTAN 50 MG TAB PO SCH (11:05)
[2022-04-25] MEDS: DOCUSATE SODIUM 100 MG CAP PO SCH ×2 (11:05→22:03)
[2022-04-26] MEDS: LEVOTHYROXINE 150 MCG TAB PO SCH (05:49)
[2022-04-26] MEDS: BUTALB/ACETAMINOPHEN/CAFFEINE TAB PO PRN ×2 (08:30→18:15)
[2022-04-26] MEDS: amLODIPine 10 MG TAB PO SCH (10:41)
[2022-04-26] MEDS: LOSARTAN 50 MG TAB PO SCH (10:41)
[2022-04-26] MEDS: DOCUSATE SODIUM 100 MG CAP PO SCH ×2 (10:41→22:06)
[2022-04-26] MEDS: hydroCHLOROthiazide 12.5 MG CAP PO SCH (10:41)
[2022-04-26] MEDS: DICLOFENAC SODIUM 1% TOPICAL GEL 100 GM TP SCH ×3 (10:42→22:07)
[2022-04-26] MEDS: HYDROcodone/ACETAMINOPHEN 5-325 MG TAB PO PRN (22:06)
[2022-04-27] MEDS: LEVOTHYROXINE 150 MCG TAB PO SCH (05:55)
--- NOTE | 2022-04-27 08:36 | Progress Note ---
Subjective Date of service: 04/27/22 Principal diagnosis: Right parietal intracerebral hemorrhage Interval history: 71-year-old female who presented to [facility] with left-sided weakness afte r originally going to urgent care for knee pain. She became dizzy and was off balance at urgent care and was sent to [facility]. Noted to have left-sided weakness and the CT head showed a small right parietal intracerebral hemorrhage. Blood pressure was elevated to a high of 213 systolic. Patient was started on Cardene drip and blood pressure was controlled. CT head showed hyperdensities at bilateral parietal lobes and left inferior frontal lobe encephalomalacia. CTA head neck showed no significant abnormalities. MRI brain showed acute hemorrhage in the posterior parietal lobes and multiple areas of suspected old intracranial hemorrhages along with a older deep left frontal lobe infarct. At some point, patient was complaining of dysuria at the outside hospital, she was started on Cipro. Unfortunately Cipro was not available currently at this hospital. Nursing staff at outside hospital was contacted to obtain urine culture and sensitivity results however staff told me that normal skin beverley grew out. No records are available other than what was given verbally. UA C&S was obtained upon admission, appears to show 1+ blood, bacteria and leukocyte esterase. We will await culture results and treat if needed. Unfortunately patient arrived at 4 AM, she was scheduled for 6 PM yesterday afternoon. She does state that she is tired, did not get much sleep and has had issues with the call light since arriving. Have discussed with staff and they have requested maintenance investigate the call light issues. After the patient was medically stabilized they were transferred for further rehabilitation. All available medical records have been reviewed. Plan of care was discussed with patient. Interval History: Patient is participating in therapy and making reasonable progress. Taking rest breaks as needed. +BM, bisacodyl is scheduled and MiraLAX is available, have discussed with patient, patient states that she is now having hard stools and wants a softener added. Denies pain, palpitations, dyspnea, cough, N/V, weakness. Patient still wants to go home, will schedule for Wednesday and have discussed with her issues that she needs to take care of after discharge. Also discussed the need for family training. She will need intermittent supervision at home Intraparenchymal cerebral hemorrhage: Neurologically stable. No signs of worsening neurologic changes. Continue to monitor. Decreased safety awareness, Hypertension: Stable and within good range. Continue to monitor and adjust medications for goal blood pressure less than 140/90. Hypothyroidism: Continue medications, stable Bilateral knee arthritis: X-rays reviewed, appears very mild. Discussed with patient and started Voltaren gel bilaterally, seems to be working fairly well. Grind test negative bilaterally. Recommend follow-up with interventional PM&R or orthopedics for consideration of injections. No complaints of buckling currently, increased pain today but seems mild on exam Migraines: Continue Fioricet as needed Constipation: Medications available, have scheduled bisacodyl. Continue Colace and monitor CAD: Patient unable to take aspirin currently, monitor for any worsening symptoms ADL and mobility deficits: Balance is very poor, patient is up and moving around in the room independently. Have cautioned her against getting up without therapy/staff being available. Continue work with therapy to improve independence All records, vitals, labs and medications were reviewed. No other issues per patient, nursing or therapy. Objective - Exam Narrative Exam: MUSCULOSKELETAL SPECIALTY EXAM CONSTITUTIONAL: Well developed, well nourished, appropriately groomed, obese. RIGHT hand dominant. RESPIRATORY: Clear to auscultation bilaterally, no increased work of breathing CARDIOVASCULAR: Regular Rate/ Rhythm, no swelling, edema or tenderness in BUE or BLE. All extremities warm. GI: + bowel sounds, soft, NTTP, nondistended. INTEGUMENTARY: Normal, no lesion, rash, masses or bruising noted in extremities. MUSCULOSKELETAL: Tenderness to palpation in bilateral knees at medial joint line and anterior worse on the left but mild overall. Otherwise, BUE and BLE normal without d efect, crepitus, subluxation, effusion, arthritic changes or TTP. R 4+ /5 L 4+ /5 ROM within normal limit Tone within normal limit NEURO: CN VII : Left facial droop Sensation intact in all extremities without extinction. No tremor noted in 4 extremities. Naming and repetition intact. Follows 2 step commands. Aphasia not appreciated Dysarthria not appreciated Dysphagia not appreciated Neglect not appreciated POSTURE and GAIT: Sitting posture good. Remains high fall risk PSYCH: Alert, oriented x3, affect appears euthymic. Insight appears intact. Does have decreased safety awareness at times - Constitutional Vitals: Vital Signs - 12hr 04/26/22 04/26/22 21:03 22:00 Temperature 98.7 F Pulse Rate 87 Respiratory 18 Rate Blood Pressure 134/91 O2 Sat by Pulse 96 95 Oximetry - Allied health notes Allied health notes reviewed: nursing, PT, OT FIMS assessment as documented by PT/OT/ST: Transfers Bed/Chair/Wheelchair Transfers 4. Minimal Assistance (Patient = 75% or more. FIM Score Needs touching.) Toilet Transfers FIM Score 5. Supervision (Needs supervision or cueing.) Locomotion- Stairs Stairs FIM Score 2. Maximal Assistance (Patient = 25% or more, 4- 6 stairs.) Locomotion- walk/wheelchair Ambulation Distance 50 Walking FIM Score 2. Maximal Assistance (Patient = 25% or more. Minimum of 50 ft.) Wheelchair FIM Score 2. Maximal Assistance (Patient = 25% or more. Minimum of 50 ft.) - Labs CBC & Chem 7: 04/24/22 Unknown 04/24/22 Unknown Assessment and Plan Intraparenchymal cerebral hemorrhage: Continue to monitor patient for worsening neurologic deficits. Control blood pressure closely. Avoid antithrombotics/anticoagulants. Patient will need to follow-up with neurology after discharge. Have discussed prognosis and recovery timeline with the patient. Continue PT/OT to improve patient's ability to perform mobility and ADLs with increasing independence with decreasing reliance on caregivers. Hypertension: Continue medication. Monitor blood pressure. Adjust medications as needed for normotension. Hold for hypotension. Goal SBP <140. Hypothyroidism: Continue medications. Monitor and adjust if needed. UTI?: Resolved. Patient was started on Cipro for UTI at outside hospital. Apparently we have had an issue obtaining Cipro at this hospital as I was informed by pharmacy. Once I saw this I called the outside hospital to obtain the culture and sensitivity from the patient's UTI however nursing stated that the cultures showed normal skin beverley. Cultures were not sent with the patient when she admitted. I did order a UA with culture and sensitivity upon admission and the UA currently shows 1+ blood, leukocyte esterase, and bacteria. Culture NGTD. Patient did state that she was having dysuria at the outside hospital but is denying any issues currently. Bilateral knee arthritis: Patient states that buckling of the knees was her primary issue that she had initially went to the urgent care for. She has received injections of steroids recently from her PCP which were not effective. I discussed knee OA and the prognosis/typical treatment modalities. Recommend that the patient follow-up with orthopedics or interventional PM&R for further steroid injections and consideration of viscosupplementation if appropriate. Could also be meniscus related, will defer to outpatient work-up. We will continue to monitor and treat with modalities as appropriate. Voltaren gel ordered, x-rays reviewed and show mild arthritis bilaterally. Seems to be doing somewhat better, no buckling with therapy Migraines: Continue Fioricet as needed. CAD: Monitor for any further issues. 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 Constipation: Medications scheduled and available as needed, denies any nausea vomiting. Passing flatus. Monitor ADL dysfunction: OT will work on improving ability to perform ADLs (including assistive devices) to increase independence and decrease caregiver burden and improve functional transfers and mobility training. Difficulty walking: PT will work on gait training and proper use of assistive devices and advance as appropriate to use of stairs and outside ambulation on uneven surfaces. Unsteadiness on feet: PT will work on improving static and dynamic sitting and standing balance as well as proper use of assistive devices to decrease risk of falls. Abnormality of gait: PT will work to improve safety and efficiency of gait through neuromotor training and gait training along with instruction on proper use of assistive devices. Muscle weakness: PT & OT will work on strengthening exercises to improve functional strength including mixture of closed and open kinetic chain exercises. Debility: PT & OT will work on improving overall functional status to improve participation with ADLs, mobility and social involvement. Fatigue: PT & OT will work on improving endurance through aerobic exercises and therapeutic activity while monitoring patients tolerance for activity and vital signs as needed. DVT ppx: Contraindicated due to hemorrhagic CVA Pain: Continue physical modalities in therapy and pain medications as needed to achieve functional pain control. Sleep: Monitor and address as needed. Bowel: Monitor and address as needed. Medications have been scheduled and as needed medications are available as well, monitor Appetite: Monitor and address as needed. Discharge planning: Pending therapy progress and care plan meeting. Will continue discussion with therapy team, SW, patient and family. Will likely discharge next week pending further improvement. Patient will need a rolling walker at this time. We will look to discharge home with DME and medications on Wednesday Restrictions/ Precautions: Falls WB status: FWB Functional Hx: ADLs: Independent Cognition: Independent Mobility: No AD Barriers to Discharge: Decreased mobility and ability to perform self care, bal ance deficits, weakness Estimated Length of Stay: 1014 days Discharge Destination: Home with family
[2022-04-27] MEDS: DICLOFENAC SODIUM 1% TOPICAL GEL 100 GM TP SCH ×3 (09:15→22:15)
[2022-04-27] MEDS: DOCUSATE SODIUM 100 MG CAP PO SCH ×2 (09:16→22:13)
[2022-04-27] MEDS: amLODIPine 10 MG TAB PO SCH (09:16)
[2022-04-27] MEDS: LOSARTAN 50 MG TAB PO SCH (09:18)
[2022-04-27] MEDS: hydroCHLOROthiazide 12.5 MG CAP PO SCH (09:19)
[2022-04-27] MEDS: BUTALB/ACETAMINOPHEN/CAFFEINE TAB PO PRN (15:03)
[2022-04-27] MEDS: HYDROcodone/ACETAMINOPHEN 5-325 MG TAB PO PRN (18:24)
[2022-04-28] MEDS: LEVOTHYROXINE 150 MCG TAB PO SCH (05:50)
[2022-04-28] MEDS: BUTALB/ACETAMINOPHEN/CAFFEINE TAB PO PRN ×3 (08:32→21:38)
[2022-04-28] MEDS: DICLOFENAC SODIUM 1% TOPICAL GEL 100 GM TP SCH ×3 (08:33→21:41)
[2022-04-28] MEDS: amLODIPine 10 MG TAB PO SCH (09:24)
[2022-04-28] MEDS: DOCUSATE SODIUM 100 MG CAP PO SCH ×2 (09:25→21:39)
[2022-04-28] MEDS: LOSARTAN 50 MG TAB PO SCH (09:25)
[2022-04-28] MEDS: hydroCHLOROthiazide 12.5 MG CAP PO SCH (09:26)
[2022-04-28] MEDS: HYDROcodone/ACETAMINOPHEN 5-325 MG TAB PO PRN (11:21)
--- NOTE | 2022-04-28 13:07 | Progress Note ---
Subjective Date of service: 04/28/22 Principal diagnosis: Right parietal intracerebral hemorrhage Interval history: 71-year-old female who presented to [facility] with left-sided weakness afte r originally going to urgent care for knee pain. She became dizzy and was off balance at urgent care and was sent to [facility]. Noted to have left-sided weakness and the CT head showed a small right parietal intracerebral hemorrhage. Blood pressure was elevated to a high of 213 systolic. Patient was started on Cardene drip and blood pressure was controlled. CT head showed hyperdensities at bilateral parietal lobes and left inferior frontal lobe encephalomalacia. CTA head neck showed no significant abnormalities. MRI brain showed acute hemorrhage in the posterior parietal lobes and multiple areas of suspected old intracranial hemorrhages along with a older deep left frontal lobe infarct. At some point, patient was complaining of dysuria at the outside hospital, she was started on Cipro. Unfortunately Cipro was not available currently at this hospital. Nursing staff at outside hospital was contacted to obtain urine culture and sensitivity results however staff told me that normal skin beverley grew out. No records are available other than what was given verbally. UA C&S was obtained upon admission, appears to show 1+ blood, bacteria and leukocyte esterase. We will await culture results and treat if needed. Unfortunately patient arrived at 4 AM, she was scheduled for 6 PM yesterday afternoon. She does state that she is tired, did not get much sleep and has had issues with the call light since arriving. Have discussed with staff and they have requested maintenance investigate the call light issues. After the patient was medically stabilized they were transferred for further rehabilitation. All available medical records have been reviewed. Plan of care was discussed with patient. Interval History: Patient is participating in therapy and making reasonable progress. Taking rest breaks as needed. +BM. Denies pain, palpitations, dyspnea, cough, N/V, w eakness. Patient is now having second thoughts about going home and feels uncomfortable however she is doing fairly well. Have called the daughter who is also concerned about the patient going home this soon and have scheduled a family therapy session so that the daughter and the patient can see how far she is actually calm. We will likely end up discharging the patient home Wednesday. Also discussed the need for family training. She will need intermittent supervision at home Intraparenchymal cerebral hemorrhage: Neurologically stable. No signs of worsening neurologic changes. Continue to monitor. Decreased safety awareness, Hypertension: Stable and within good range. Continue to monitor and adjust medications for goal blood pressure less than 140/90. Hypothyroidism: Continue medications, stable Bilateral knee arthritis: X-rays reviewed, appears very mild. Discussed with patient and started Voltaren gel bilaterally, seems to be working fairly well. Grind test negative bilaterally. Recommend follow-up with interventional PM&R or orthopedics for consideration of injections. No complaints of buckling currently, increased pain today but seems mild on exam Migraines: Continue Fioricet as needed Constipation: Medications available, have scheduled bisacodyl. Continue Colace and monitor CAD: Patient unable to take aspirin currently, monitor for any worsening symptom s ADL and mobility deficits: Balance is very poor, patient is up and moving around in the room independently. Have cautioned her against getting up without therapy/staff being available. Continue work with therapy to improve independence All records, vitals, labs and medications were reviewed. No other issues per patient, nursing or therapy. Patient discussed during team conference, making good progress and seems to be doing fairly well with mobility and ADLs. Patient is apprehensive. She still has issues with intermittent knee buckling but this is only occurred very infrequently. Knee osteoarthritis is very mild according to x-ray, could still be meniscus related. Patient states that she does have an orthopedic follow-up scheduled from before hospitalization. Patient will need rolling walker, tub transfer bench and a 3 and 1 at discharge. Will also be discharged with home he alth. In total, greater than 37 minutes was invested in patient care today including counseling the patient and coordinating care with therapy and nursing staff. Objective - Exam Narrative Exam: MUSCULOSKELETAL SPECIALTY EXAM CONSTITUTIONAL: Well developed, well nourished, appropriately groomed, obese. RIGHT hand dominant. RESPIRATORY: Clear to auscultation bilaterally, no increased work of breathing CARDIOVASCULAR: Regular Rate/ Rhythm, no swelling, edema or tenderness in BUE or BLE. All extremities warm. GI: + bowel sounds, soft, NTTP, nondistended. INTEGUMENTARY: Normal, no lesion, rash, masses or bruising noted in extremities. MUSCULOSKELETAL: Tenderness to palpation in bilateral knees at medial joint line and anterior worse on the left but mild overall. Otherwise, BUE and BLE normal without defect, crepitus, subluxation, effusion, arthritic changes or TTP. R 4+ /5 L 4+ /5 ROM within normal limit Tone within normal limit NEURO: CN VII : Left facial droop Sensation intact in all extremities without extinction. No tremor noted in 4 extremities. Naming and repetition intact. Follows 2 step commands. Aphasia not appreciated Dysarthria not appreciated Dysphagia not appreciated Neglect not appreciated POSTURE and GAIT: Sitting posture good. Gait stable without loss of balance today. Remains high fall risk PSYCH: Alert, oriented x3, affect appears euthymic. Insight appears intact. Does have decreased safety awareness at times but this has improved - Constitutional Vitals: Vital Signs - 12hr 04/28/22 04/28/22 08:29 12:02 Temperature 97.8 F Pulse Rate 85 Respiratory 18 Rate Blood Pressure 139/84 [Left] O2 Sat by Pulse 99 Oximetry - Allied health notes Allied health notes reviewed: nursing, PT, OT FIMS assessment as documented by PT/OT/ST: Transfers Bed/Chair/Wheelchair Transfers 4. Minimal Assistance (Patient = 75% or more. FIM Score Needs touching.) Toilet Transfers FIM Score 5. Supervision (Needs supervision or cueing.) Locomotion- Stairs Stairs FIM Score 2. Maximal Assistance (Patient = 25% or more, 4 - 6 stairs.) Locomotion- walk/wheelchair Ambulation Distance 50 Walking FIM Score 2. Maximal Assistance (Patient = 25% or more. Minimum of 50 ft.) Wheelchair FIM Score 2. Maximal Assistance (Patient = 25% or more. Minimum of 50 ft.) - Labs CBC & Chem 7: 04/24/22 Unknown 04/24/22 Unknown Assessment and Plan Intraparenchymal cerebral hemorrhage: Continue to monitor patient for worsening neurologic deficits. Control blood pressure closely. Avoid antithrombotics/anticoagulants. Patient will need to follow-up with neurology after discharge. Have discussed prognosis and recovery timeline with the patient. Continue PT/OT to improve patient's ability to perform mobility and ADLs with increasing independence with decreasing reliance on caregivers. Hypertension: Continue medication. Monitor blood pressure. Adjust medications as needed for normotension. Hold for hypotension. Goal SBP <140. Hypothyroidism: Continue medications. Monitor and adjust if needed. UTI?: Resolved. Patient was started on Cipro for UTI at outside hospital. Apparently we have had an issue obtaining Cipro at this hospital as I was informed by pharmacy. Once I saw this I called the outside hospital to obtain the culture and sensitivity from the patient's UTI however nursing stated that the cultures showed normal skin beverley. Cultures were not sent with the patient when she admitted. I did order a UA with culture and sensitivity upon admission and the UA currently shows 1+ blood, leukocyte esterase, and bacteria. Culture NGTD. Patient did state that she was having dysuria at the outside hospital but is denying any issues currently. Bilateral knee arthritis: Patient states that buckling of the knees was her primary issue that she had initially went to the urgent care for. She has received injections of steroids recently from her PCP which were not effective. I discussed knee OA and the prognosis/typical treatment modalities. Recommend that the patient follow-up with orthopedics or interventional PM&R for further steroid injections and consideration of viscosupplementation if appropriate. Could also be meniscus related, will defer to outpatient work-up. We will continue to monitor and treat with modalities as appropriate. Voltaren gel ordered, x-rays reviewed and show mild arthritis bilaterally. Seems to be doing somewhat better, no buckling with therapy Migraines: Continue Fioricet as needed. CAD: Monitor for any further issues. 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 Constipation: Medications scheduled and available as needed, denies any nausea vomiting. Moving bowels currently. Monitor ADL dysfunction: OT will work on improving ability to perform ADLs (including assistive devices) to increase independence and decrease caregiver burden and improve functional transfers and mobility training. Difficulty walking: PT will work on gait training and proper use of assistive devices and advance as appropriate to use of stairs and outside ambulation on uneven surfaces. Unsteadiness on feet: PT will work on improving static and dynamic sitting and standing balance as well as proper use of assistive devices to decrease risk of falls. Abnormality of gait: PT will work to improve safety and efficiency of gait through neuromotor training and gait training along with instruction on proper use of assistive devices. Muscle weakness: PT & OT will work on strengthening exercises to improve functional strength including mixture of closed and open kinetic chain exercises. Debility: PT & OT will work on improving overall functional status to improve participation with ADLs, mobility and social involvement. Fatigue: PT & OT will work on improving endurance through aerobic exercises and therapeutic activity while monitoring patients tolerance for activity and vital signs as needed. DVT ppx: Contraindicated due to hemorrhagic CVA Pain: Continue physical modalities in therapy and pain medications as needed to achieve functional pain control. Sleep: Monitor and address as needed. Bowel: Monitor and address as needed. Medications have been scheduled and as needed medications are available as well, monitor Appetite: Monitor and address as needed. Discharge planning: Pending therapy progress and care plan meeting. Will continue discussion with therapy team, SW, patient and family. Will likely discharge next week pending further improvement. Patient will need a rolling walker, tub transfer bench and 3 and 1 for safety at this time. We will look to discharge home with DME and medications on Wednesday now Restrictions/ Precautions: Falls WB status: FWB Functional Hx: ADLs: Independent Cognition: Independent Mobility: No AD Barriers to Discharge: Decreased mobility and ability to perform self care, balance deficits, weakness Estimated Length of Stay: 1014 days Discharge Destination: Home with family
[2022-04-29] MEDS: LEVOTHYROXINE 125 MCG TAB PO SCH (06:33)
--- NOTE | 2022-04-29 07:49 | Progress Note ---
Subjective Date of service: 04/29/22 Principal diagnosis: Right parietal intracerebral hemorrhage Interval history: 71-year-old female who presented to [facility] with left-sided weakness afte r originally going to urgent care for knee pain. She became dizzy and was off balance at urgent care and was sent to [facility]. Noted to have left-sided weakness and the CT head showed a small right parietal intracerebral hemorrhage. Blood pressure was elevated to a high of 213 systolic. Patient was started on Cardene drip and blood pressure was controlled. CT head showed hyperdensities at bilateral parietal lobes and left inferior frontal lobe encephalomalacia. CTA head neck showed no significant abnormalities. MRI brain showed acute hemorrhage in the posterior parietal lobes and multiple areas of suspected old intracranial hemorrhages along with a older deep left frontal lobe infarct. At some point, patient was complaining of dysuria at the outside hospital, she was started on Cipro. Unfortunately Cipro was not available currently at this hospital. Nursing staff at outside hospital was contacted to obtain urine culture and sensitivity results however staff told me that normal skin beverley grew out. No records are available other than what was given verbally. UA C&S was obtained upon admission, appears to show 1+ blood, bacteria and leukocyte esterase. We will await culture results and treat if needed. Unfortunately patient arrived at 4 AM, she was scheduled for 6 PM yesterday afternoon. She does state that she is tired, did not get much sleep and has had issues with the call light since arriving. Have discussed with staff and they have requested maintenance investigate the call light issues. After the patient was medically stabilized they were transferred for further rehabilitation. All available medical records have been reviewed. Plan of care was discussed with patient. Interval History: Patient is participating in therapy and making reasonable progress. Taking rest breaks as needed. -BM. Denies pain, palpitations, dyspnea, cough, N/V, w eakness. Talk to the patient about her family training episode yesterday, she states that she feels a little more comfortable now. Her daughter is still pushing for a later discharge however we will move forward with Wednesday for discharge. Patient feels comfortable with this and she is safe for discharge but she will need intermittent supervision at home. Discharge preparation was discussed in detail including patient's needs for follow-ups and medication management. Patient does want to receive medications from the outpatient pharmacy here on campus. In total, greater than 36 minutes was invested in patient care today including counseling and coordinating care. Intraparenchymal cerebral hemorrhage: Neurologically stable. No signs of worsening neurologic changes. Continue to monitor. Decreased safety awareness, Hypertension: Stable and within good range. Continue to monitor and adjust medications for goal blood pressure less than 140/90. Hypothyroidism: Continue medications, stable Bilateral knee arthritis: X-rays reviewed, appears very mild. Discussed with patient and started Voltaren gel bilaterally, seems to be working fairly well. Grind test negative bilaterally. Recommend follow-up with interventional PM&R or orthopedics for consideration of injections. No complaints of buckling currently, increased pain today but seems mild on exam Migraines: Continue Fioricet as needed Constipation: Medications available, have scheduled bisacodyl. Continue Colace and monitor CAD: Patient unable to take aspirin currently, monitor for any worsening symptoms ADL and mobility deficits: Balance is very poor, patient is up and moving around in the room independently. Have cautioned her against getting up without therapy/staff being available. Continue work with therapy to improve independence All records, vitals, labs and medications were reviewed. No other issues per patient, nursing or therapy. Objective - Exam Narrative Exam: MUSCULOSKELETAL SPECIALTY EXAM CONSTITUTIONAL: Well developed, well nourished, appropriately groomed, obese. RIGHT hand dominant. RESPIRATORY: Clear to auscultation bilaterally, no increased work of breathing CARDIOVASCULAR: Regular Rate/ Rhythm, no swelling, edema or tenderness in BUE or BLE. All extremities warm. GI: + bowel sounds, soft, NTTP, nondistended. INTEGUMENTARY: Normal, no lesion, rash, masses or bruising noted in extremities. MUSCULOSKELETAL: Tenderness to palpation in bilateral knees at medial joint line and anterior wor se on the left but mild overall. Otherwise, BUE and BLE normal without defect, crepitus, subluxation, effusion, arthritic changes or TTP. R 4+ /5 L 4+ /5 ROM within normal limit Tone within normal limit NEURO: CN VII : Left facial droop Sensation intact in all extremities without extinction. No tremor noted in 4 extremities. Naming and repetition intact. Follows 2 step commands. Aphasia not appreciated Dysarthria not appreciated Dysphagia not appreciated Neglect not appreciated POSTURE and GAIT: Sitting posture good. Gait stable, 300 feet with rolling walker and supervision. Remains fall risk PSYCH: Alert, oriented x3, affect appears euthymic. Insight appears intact. Does have decreased safety awareness at times but this has improved - Constitutional Vitals: Vital Signs - 12hr 04/28/22 04/28/22 21:38 22:00 Respiratory 20 Rate O2 Sat by Pulse 98 Oximetry - Allied health notes Allied health notes reviewed: nursing, PT, OT FIMS assessment as documented by PT/OT/ST: Transfers Bed/Chair/Wheelchair Transfers 4. Minimal Assistance (Patient = 75% or more. FIM Score Needs touching.) Toilet Transfers FIM Score 5. Supervision (Needs supervision or cueing.) Locomotion- Stairs Stairs FIM Score 2. Maximal Assistance (Patient = 25% or more, 4- 6 stairs.) Locomotion- walk/wheelchair Ambulation Distance 50 Walking FIM Score 2. Maximal Assistance (Patient = 25% or more. Minimum of 50 ft.) Wheelchair FIM Score 2. Maximal Assistance (Patient = 25% or more. Minimum of 50 ft.) - Labs CBC & Chem 7: 04/24/22 Unknown 04/24/22 Unknown Assessment and Plan Intraparenchymal cerebral hemorrhage: Continue to monitor patient for worsening neurologic deficits. Control blood pressure closely. Avoid antithro mbotics/anticoagulants. Patient will need to follow-up with neurology after discharge. Have discussed prognosis and recovery timeline with the patient. Continue PT/OT to improve patient's ability to perform mobility and ADLs with increasing independence with decreasing reliance on caregivers. Hypertension: Continue medication. Monitor blood pressure. Adjust medications as needed for normotension. Hold for hypotension. Goal SBP <140. Hypothyroidism: Continue medications. Monitor and adjust if needed. UTI?: Resolved. Patient was started on Cipro for UTI at outside hospital. Apparently we have had an issue obtaining Cipro at this hospital as I was informed by pharmacy. Once I saw this I called the outside hospital to obtain the culture and sensitivity from the patient's UTI however nursing stated that the cultures showed normal skin beverley. Cultures were not sent with the patient when she admitted. I did order a UA with culture and sensitivity upon admission and the UA currently shows 1+ blood, leukocyte esterase, and bacteria. Culture NGTD. Patient did state that she was having dysuria at the outside hospital but is denying any issues currently. Bilateral knee arthritis: Patient states that buckling of the knees was her primary issue that she had initially went to the urgent care for. She has received injections of steroids recently from her PCP which were not effective. I discussed knee OA and the prognosis/typical treatment modalities. Recommend that the patient follow-up with orthopedics or interventional PM&R for further steroid injections and consideration of viscosupplementation if appropriate. Could also be meniscus related, will defer to outpatient work-up. We will continue to monitor and treat with modalities as appropriate. Manisha bailey o rdered, x-rays reviewed and show mild arthritis bilaterally. Seems to be doing somewhat better, no buckling with therapy Migraines: Continue Fioricet as needed. CAD: Monitor for any further issues. 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 Constipation: Medications scheduled and available as needed, denies any nausea vomiting. Moving bowels currently. Monitor ADL dysfunction: OT will work on improving ability to perform ADLs (including assistive devices) to increase independence and decrease caregiver burden and improve functional transfers and mobility training. Difficulty walking: PT will work on gait training and proper use of assistive devices and advance as appropriate to use of stairs and outside ambulation on uneven surfaces. Unsteadiness on feet: PT will work on improving static and dynamic sitting and standing balance as well as proper use of assistive devices to decrease risk of falls. Abnormality of gait: PT will work to improve safety and efficiency of gait through neuromotor training and gait training along with instruction on proper use of assistive devices. Muscle weakness: PT & OT will work on strengthening exercises to improve fun ctional strength including mixture of closed and open kinetic chain exercises. Debility: PT & OT will work on improving overall functional status to improve participation with ADLs, mobility and social involvement. Fatigue: PT & OT will work on improving endurance through aerobic exercises and therapeutic activity while monitoring patients tolerance for activity and vital signs as needed. DVT ppx: Contraindicated due to hemorrhagic CVA Pain: Continue physical modalities in therapy and pain medications as needed to achieve functional pain control. Sleep: Monitor and address as needed. Bowel: Monitor and address as needed. Medications have been scheduled and as needed medications are available as well, monitor Appetite: Monitor and address as needed. Discharge planning: Pending therapy progress and care plan meeting. Will continue discussion with therapy team, SW, patient and family. Will likely discharge next week pending further improvement. Patient will need a rolling walker, tub transfer bench and 3 and 1 for safety at this time. We will look to discharge home with DME and medications on Wednesday now Restrictions/ Precautions: Falls WB status: FWB Functional Hx: ADLs: Independent Cognition: Independent Mobility: No AD Barriers to Discharge: Decreased mobility and ability to perform self care, balance deficits, weakness Estimated Length of Stay: 1014 days Discharge Destination: Home with family
[2022-04-29] MEDS: DOCUSATE SODIUM 100 MG CAP PO SCH ×2 (11:48→21:09)
[2022-04-29] MEDS: amLODIPine 10 MG TAB PO SCH (11:48)
[2022-04-29] MEDS: LOSARTAN 50 MG TAB PO SCH (11:48)
[2022-04-29] MEDS: hydroCHLOROthiazide 12.5 MG CAP PO SCH (11:49)
[2022-04-29] MEDS: BUTALB/ACETAMINOPHEN/CAFFEINE TAB PO PRN ×2 (11:50→20:49)
[2022-04-29] MEDS: DICLOFENAC SODIUM 1% TOPICAL GEL 100 GM TP SCH (21:09)
[2022-04-30] MEDS: LEVOTHYROXINE 125 MCG TAB PO SCH (06:02)
[2022-04-30 08:09] LABS: BUN/Creatinine Ratio 33; Blood Urea Nitrogen 30 mg/dL (7-17); Calcium 10.1 mg/dL (8.4-10.2); Hemolysis Index 0
[2022-04-30 08:21] LABS: Hematocrit 34.9 % (30.3-42.9); Hemoglobin 11.5 gm/dl (10.1-14.3); Mean Corpuscular HGB Conc 33 % (30-34); Mean Corpuscular Volume 94 fl (79-97); Platelet Count 299 K/mm3 (140-440); Red Blood Count 3.72 M/mm3 (3.65-5.03); Red Cell Distribution Width 14.9 % (13.2-15.2)
[2022-04-30] MEDS: amLODIPine 10 MG TAB PO SCH (09:23)
[2022-04-30] MEDS: DOCUSATE SODIUM 100 MG CAP PO SCH ×2 (09:24→21:16)
[2022-04-30] MEDS: BUTALB/ACETAMINOPHEN/CAFFEINE TAB PO PRN ×2 (09:24→21:30)
[2022-04-30] MEDS: LOSARTAN 50 MG TAB PO SCH (09:24)
[2022-04-30] MEDS: hydroCHLOROthiazide 12.5 MG CAP PO SCH (09:24)
[2022-04-30] MEDS: DICLOFENAC SODIUM 1% TOPICAL GEL 100 GM TP SCH ×3 (09:28→21:32)
--- NOTE | 2022-04-30 14:03 | Progress Note ---
Subjective Date of service: 04/30/22 Principal diagnosis: Right parietal intracerebral hemorrhage Interval history: 71-year-old female who presented to [facility] with left-sided weakness afte r originally going to urgent care for knee pain. She became dizzy and was off balance at urgent care and was sent to [facility]. Noted to have left-sided weakness and the CT head showed a small right parietal intracerebral hemorrhage. Blood pressure was elevated to a high of 213 systolic. Patient was started on Cardene drip and blood pressure was controlled. CT head showed hyperdensities at bilateral parietal lobes and left inferior frontal lobe encephalomalacia. CTA head neck showed no significant abnormalities. MRI brain showed acute hemorrhage in the posterior parietal lobes and multiple areas of suspected old intracranial hemorrhages along with a older deep left frontal lobe infarct. At some point, patient was complaining of dysuria at the outside hospital, she was started on Cipro. Unfortunately Cipro was not available currently at this hospital. Nursing staff at outside hospital was contacted to obtain urine culture and sensitivity results however staff told me that normal skin beverley grew out. No records are available other than what was given verbally. UA C&S was obtained upon admission, appears to show 1+ blood, bacteria and leukocyte esterase. We will await culture results and treat if needed. Unfortunately patient arrived at 4 AM, she was scheduled for 6 PM yesterday afternoon. She does state that she is tired, did not get much sleep and has had issues with the call light since arriving. Have discussed with staff and they have requested maintenance investigate the call light issues. After the patient was medically stabilized they were transferred for further rehabilitation. All available medical records have been reviewed. Plan of care was discussed with patient. Interval History: Patient is participating in therapy and making reasonable progress. Taking rest breaks as needed. +BM. Denies pain, palpitations, dyspnea, cough, N/V, w eakness. Patient states she is not drinking as much as she typically does at home. Discussed with her that she appears to be a little dry based on her BUN/creatinine ratio, offered IV fluids however she would prefer to drink more water which should correct the problem. Discussed discharge home tomorrow, patient feels safe with discharge plans. Intraparenchymal cerebral hemorrhage: Neurologically stable. No signs of worsening neurologic changes. Continue to monitor. Decreased safety awareness, Hypertension: Stable and within good range. Continue to monitor and adjust medications for goal blood pressure less than 140/90. Hypothyroidism: Continue medications, stable Bilateral knee arthritis: X-rays reviewed, appears very mild. Discussed with patient and started Voltaren gel bilaterally, seems to be working fairly well. Grind test negative bilaterally. Recommend follow-up with interventional PM&R or orthopedics for consideration of injections. No complaints of buckling cur rently, increased pain today but seems mild on exam Migraines: Continue Fioricet as needed Volume depletion: Offered IV fluids, patient will drink more fluids orally instead. States that she has not been drinking much water here because she prefers bottled water and does not like it once is warmed up to room temperature Constipation: Medications available, have scheduled bisacodyl. Continue Colace and monitor CAD: Patient unable to take aspirin currently, monitor for any worsening symptoms ADL and mobility deficits: Balance is very poor, patient is up and moving around in the room independently. Have cautioned her against getting up without therapy/staff being available. Continue work with therapy to improve independence All records, vitals, labs and medications were reviewed. No other issues per patient, nursing or therapy. Objective - Exam Narrative Exam: MUSCULOSKELETAL SPECIALTY EXAM CONSTITUTIONAL: Well developed, well nourished, appropriately groomed, obese. RIGHT hand dominant. RESPIRATORY: Clear to auscultation bilaterally, no increased work of breathing CARDIOVASCULAR: Regular Rate/ Rhythm, no swelling, edema or tenderness in BUE or BLE. All extremities warm. GI: + bowel sounds, soft, NTTP, nondistended. INTEGUMENTARY: Normal, no lesion, rash, masses or bruising noted in extremities. MUSCULOSKELETAL: Less tender to palpation today, bilateral knees at medial joint line and a nterior worse on the left but mild overall. Otherwise, BUE and BLE normal without defect, crepitus, subluxation, effusion, arthritic changes or TTP. R 4+ /5 L 4+ /5 ROM within normal limit Tone within normal limit NEURO: CN VII : Left facial droop Sensation intact in all extremities without extinction. No tremor noted in 4 extremities. Naming and repetition intact. Follows 2 step commands. Aphasia not appreciated Dysarthria not appreciated Dysphagia not appreciated Neglect not appreciated POSTURE and GAIT: Sitting posture good. Gait stable, 300 feet with rolling walker and supervision. Remains fall risk PSYCH: Alert, oriented x3, affect appears euthymic. Insight appears intact. Does have decreased safety awareness at times but this has improved - Constitutional Vitals: Vital Signs - 12hr 04/30/22 04/30/22 04/30/22 09:16 10:00 12:45 Temperature 98.0 F 98.0 F Pulse Rate 82 Respiratory 18 18 16 Rate Blood Pressure 126/78 Blood Pressure 130/72 [Left] O2 Sat by Pulse 99 100 Oximetry - Allied health notes Allied health notes reviewed: nursing, PT, OT FIMS assessment as documented by PT/OT/ST: Transfers Bed/Chair/Wheelchair Transfers 4. Minimal Assistance (Patient = 75% or more. FIM Score Needs touching.) Toilet Transfers FIM Score 5. Supervision (Needs supervision or cueing.) Locomotion- Stairs Stairs FIM Score 2. Maximal Assistance (Patient = 25% or more, 4- 6 stairs.) Locomotion- walk/wheelchair Ambulation Distance 50 Walking FIM Score 2. Maximal Assistance (Patient = 25% or more. Minimum of 50 ft.) Wheelchair FIM Score 2. Maximal Assistance (Patient = 25% or more. Minimum of 50 ft.) - Labs CBC & Chem 7: 04/30/22 07:16 04/30/22 07:16 Labs: Laboratory Results - last 72 hr 04/30/22 04/30/22 07:16 07:16 WBC 3.8 L RBC 3.72 Hgb 11.5 Hct 34.9 MCV 94 MCH 31 MCHC 33 RDW 14.9 Plt Count 299 Sodium 142 Potassium 4.1 Chloride 102.8 Carbon Dioxide 25 Anion Gap 18 BUN 30 H Creatinine 0.9 Estimated GFR > 60 BUN/Creatinine Ratio 33 Glucose 106 H Calcium 10.1 Assessment and Plan Intraparenchymal cerebral hemorrhage: Continue to monitor patient for worsening neurologic deficits. Control blood pressure closely. Avoid antithrombotics/anticoagulants. Patient will need to follow-up with neurology after discharge. Have discussed prognosis and recovery timeline with the patient. Continue PT/OT to improve patient's ability to perform mobility and A DLs with increasing independence with decreasing reliance on caregivers. Hypertension: Continue medication. Monitor blood pressure. Adjust medications as needed for normotension. Hold for hypotension. Goal SBP <140. Hypothyroidism: Continue medications. Monitor and adjust if needed. UTI?: Resolved. Patient was started on Cipro for UTI at outside hospital. Apparently we have had an issue obtaining Cipro at this hospital as I was informed by pharmacy. Once I saw this I called the outside hospital to obtain the culture and sensitivity from the patient's UTI however nursing stated that the cultures showed normal skin beverley. Cultures were not sent with the patient when she admitted. I did order a UA with culture and sensitivity upon admission and the UA currently shows 1+ blood, leukocyte esterase, and bacteria. Culture NGTD. Patient did state that she was having dysuria at the outside hospital but is denying any issues currently. Bilateral knee arthritis: Patient states that buckling of the knees was her primary issue that she had initially went to the urgent care for. She has received injections of steroids recently from her PCP which were not effective. I discussed knee OA and the prognosis/typical treatment modalities. Recommend that the patient follow-up with orthopedics or interventional PM&R for further steroid injections and consideration of viscosupplementation if appropriate. Could also be meniscus related, will defer to outpatient work-up. We will c ontinue to monitor and treat with modalities as appropriate. Voltaren gel ordered, x-rays reviewed and show mild arthritis bilaterally. Seems to be doing somewhat better, no buckling with therapy Volume depletion: Patient states she is not drinking as much water here as she does at home. Will attempt to drink more water. Advised to follow-up with PCP for further monitoring Migraines: Continue Fioricet as needed. CAD: Monitor for any further issues. 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 Constipation: Medications scheduled and available as needed, denies any nausea vomiting. Moving bowels currently. Monitor ADL dysfunction: OT will work on improving ability to perform ADLs (including assistive devices) to increase independence and decrease caregiver burden and improve functional transfers and mobility training. Difficulty walking: PT will work on gait training and proper use of assistive devices and advance as appropriate to use of stairs and outside ambulation on uneven surfaces. Unsteadiness on feet: PT will work on improving static and dynamic sitting and standing balance as well as proper use of assistive devices to decrease risk of falls. Abnormality of gait: PT will work to improve safety and efficiency of gait through neuromotor training and gait training along with instruction on proper use of assistive devices. Muscle weakness: PT & OT will work on strengthening exercises to improve functional strength including mixture of closed and open kinetic chain exercises. Debility: PT & OT will work on improving overall functional status to improve participation with ADLs, mobility and social involvement. Fatigue: PT & OT will work on improving endurance through aerobic exercises and therapeutic activity while monitoring patients tolerance for activity and vital signs as needed. DVT ppx: Contraindicated due to hemorrhagic CVA Pain: Continue physical modalities in therapy and pain medications as needed to achieve functional pain control. Sleep: Monitor and address as needed. Bowel: Monitor and address as needed. Medications have been scheduled and as needed medications are available as well, monitor Appetite: Monitor and address as needed. Discharge planning: Pending therapy progress and care plan meeting. Will continue discussion with therapy team, SW, patient and family. Will likely discharge next week pending further improvement. Patient will need a rolling walker, tub transfer bench and 3 and 1 for safety at this time. We will look to discharge home with DME and medications on Wednesday now Restrictions/ Precautions: Falls WB status: FWB Functional Hx: ADLs: Independent Cognition: Independent Mobility: No AD Barriers to Discharge: Decreased mobility and ability to perform self care, balance deficits, weakness Estimated Length of Stay: 1014 days Discharge Destination: Home with family
[2022-04-30] MEDS: HYDROcodone/ACETAMINOPHEN 5-325 MG TAB PO PRN (17:51)
[2022-05-01] MEDS: LEVOTHYROXINE 125 MCG TAB PO SCH (05:56)
--- NOTE | 2022-05-01 08:28 | Discharge Summary ---
Providers - Providers Date of Admission: 04/18/22 04:24 Date of discharge: 05/01/22 Attending physician: BERHANE JUAN III, MD 04/17/22 16:53 Occupational Therapy Evaluate and Treat [CONS] Routine Comment: Reason For Exam: ADL dysfunction Physical Therapy Evaluation and Treat [CONS] Routine Comment: Reason For Exam: Mobility Dysfunction 04/17/22 17:03 Consult to Case Management [CONS] Routine Services Needed at Discharge: Home Health Services Notified:: CASE MANAGEMENT Primary care physician: PUMP TESTER Hospitalization Reason for admission: Right parietal intracerebral hemorrhage Condition: Good Hospital course: 71-year-old female who presented to [facility] with left-sided weakness a fter originally going to urgent care for knee pain. She became dizzy and was off balance at urgent care and was sent to [facility]. Noted to have left- sided weakness and the CT head showed a small right parietal intracerebral hemorrhage. Blood pressure was elevated to a high of 213 systolic. Patient was started on Cardene drip and blood pressure was controlled. CT head showed hyperdensities at bilateral parietal lobes and left inferior frontal lobe encephalomalacia. CTA head neck showed no significant abnormalities. MRI brain showed acute hemorrhage in the posterior parietal lobes and multiple areas of suspected old intracranial hemorrhages along with a older deep left frontal lobe infarct. At some point, patient was complaining of dysuria at the outside hospital, she was started on Cipro. Unfortunately Cipro was not available currently at this hospital. Nursing staff at outside hospital was contacted to obtain urine culture and sensitivity results however staff told me that normal skin beverley grew out. No records are available other than what was given verbally. UA C&S was obtained upon admission, appears to show 1+ blood, bacteria and leukocyte esterase. We will await culture results and treat if needed. Unfortunately patient arrived at 4 AM, she was scheduled for 6 PM yesterday afternoon. She does state that she is tired, did not get much sleep and has had issues with the call light since arriving. Have discussed with staff and they have requested maintenance investigate the call light issues. After the patient was medically stabilized they were transferred for further rehabilitation. All available medical records have been reviewed. Plan of care was discussed with patient. Intraparenchymal cerebral hemorrhage: Continue to monitor patient for worsening neurologic deficits. Control blood pressure closely. Avoid antithrombotics/anticoagulants. Patient will need to follow-up with neurology after discharge. Have discussed prognosis and recovery timeline with the patient. Continue PT/OT to improve patient's ability to perform mobility and ADLs with increasing independence with decreasing reliance on caregivers. Patient's neurological status has been stable. She was provided with a list of neurologist to follow-up with and on the day of discharge was encouraged to contact any local neurologist covered by her insurance to follow-up. Hypertension: Continue medication. Monitor blood pressure. Adjust medications as needed for normotension. Hold for hypotension. Goal SBP <140. Blood pressures been fairly stable on current medications. Hypothyroidism: Continue medications. Monitor and adjust if needed. Dose of Synthroid is in question. Patient is uncertain of her dose. [facility] discharge her to us on 300 mcg daily however our pharmacist contacted her pharmacy who last dispensed her Synthroid and then followed up with her PCP who both state her dose is 250 mcg. Will discharge on the dose confirmed by her PCP and pharmacy UTI?: Resolved. Patient was started on Cipro for UTI at outside hospital. Apparently we have had an issue obtaining Cipro at this hospital as I was informed by pharmacy. Once I saw this I called the outside hospital to obtain the culture and sensitivity from the patient's UTI however nursing stated that the cultures showed normal skin beverley. Cultures were not sent with the patient when she admitted. I did order a UA with culture and sensitivity upon admission and the UA currently shows 1+ blood, leukocyte esterase, and bacteria. Culture NGTD. Patient did state that she was having dysuria at the outside hospital but is denying any issues currently. Bilateral knee arthritis: Patient states that buckling of the knees was her primary issue that she had initially went to the urgent care for. She has received injections of steroids recently from her PCP which were not effective. I discussed knee OA and the prognosis/typical treatment modalities. Recommend that the patient follow-up with orthopedics or interventional PM&R for further steroid injections and consideration of viscosupplementation if appropriate. Could also be meniscus related, will defer to outpatient work-up. We will continue to monitor and treat with modalities as appropriate. Voltaren gel ordered, x-rays reviewed and show mild arthritis bilaterally. Seems to be doing somewhat better, no buckling with therapy. Volume depletion: Patient states she is not drinking as much water here as she does at home, BUN slightly elevated. Will attempt to drink more water. Advised to follow-up with PCP for further monitoring. Offered IV fluids yesterday patient wanted to try oral intake first. Migraines: Continue Fioricet as needed. CAD: Monitor for any further issues. 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 Follow-up with PCP or tank farm gauger for further monitoring and management. Constipation: Medications scheduled and available as needed, denies any nausea vomiting. Moving bowels currently. Monitor ADL dysfunction: OT will work on improving ability to perform ADLs (including assistive devices) to increase independence and decrease caregiver burden and improve functional transfers and mobility training. Difficulty walking: PT will work on gait training and proper use of assistive devices and advance as appropriate to use of stairs and outside ambulation on uneven surfaces. Disposition: HOME HEALTH CARE SERVICE Final Discharge Diagnosis (Prints w/discharge instructions): Hemorrhagic CVA, hypertension, bilateral knee osteoarthritis, ADL and mobility deficits, CAD Time spent for discharge: >35 mins Core Measure Documentation - Palliative Care Palliative Care/ Comfort Measures: Not Applicable - Core Measures Any of the following diagnoses?: stroke - Stroke Discharge Requirements Statin for LDL = or >70 mg/dl on DC: Yes Anticoag for atrial fib/atrial flutter: Not Applicable Antithrombotic for ischemic stroke: No Reason for no antithrombotic on DC: Medical Contraindication Stroke additional comments: Intraparenchymal hemorrhage Exam - Physical Exam Narrative exam: MUSCULOSKELETAL SPECIALTY EXAM CONSTITUTIONAL: Well developed, well nourished, appropriately groomed, obese. RIGHT hand dominant. RESPIRATORY: Clear to auscultation bilaterally, no increased work of breathing CARDIOVASCULAR: Regular Rate/ Rhythm, no swelling, edema or tenderness in BUE or BLE. All extremities warm. GI: + bowel sounds, soft, NTTP, nondistended. INTEGUMENTARY: Normal, no lesion, rash, masses or bruising noted in extremities. MUSCULOSKELETAL: Less tender to palpation today, bilateral knees at medial joint line and anterior worse on the left but mild overall. Otherwise, BUE and BLE normal without defect, crepitus, subluxation, effusion, arthritic changes or TTP. R 4+ /5 L 4+ /5 ROM within normal limit Tone within normal limit NEURO: CN VII : Left facial droop Sensation intact in all extremities without extinction. No tremor noted in 4 extremities. Naming and repetition intact. Follows 2 step commands. Aphasia not appreciated Dysarthria not appreciated Dysphagia not appreciated Neglect not appreciated POSTURE and GAIT: Sitting posture good. Gait stable, 300 feet with rolling walker and supervision. Remains fall risk PSYCH: Alert, oriented x3, affect appears euthymic. Seems to have memory issues occasionally. Insight appears intact. Does have decreased safety awareness at times but this has improved - Constitutional Vitals: Temp Pulse Resp BP Pulse Ox 98.0 F 89 18 104/61 97 04/30/22 12:45 04/30/22 16:55 04/30/22 19:47 04/30/22 19:47 04/30/22 22:00 Plan Activity: advance as tolerated, no driving until cleared by PCP, up only with assistance, fall precautions Diet: other (Heart healthy diet, low-fat, low-sodium) Special Instructions: record daily BP diary, home health RN (Patient discharged with home health nursing, PT, OT) Durable Medical Equipment Needed Upon Discharge: Walker-Rolling, Bedside Commode, other (Shower chair) Care Plan Goals: Patient will need to follow-up with neurology. She can see any neurologist of her choice. A list of neurologist as printed up from [facility] was given to the patient at time of discharge by me personally and she was reminded of the importance of following up. Also discussed not taking aspirin or other NSAIDs/blood thinners until she sees neurology. Patient also needs to follow-up with Dr. Justine Huffman who can be reached at for a sleep study. This was also recommended by [facility] and the paperwork was given to the patient by me personally. Dr. Huffman's address is [address] [place] [address]. Patient will also need to follow-up with her primary care physician for further monitoring of her chronic medical conditions and coordination of care for her specialist. Question of her Synthroid dose did arise with the patient being uncertain of her dose but the pharmacy and PCP having a different dose than [facility] medical reconciliation. We have adjusted her dose to the level verified with her PCP and pharmacy. Patient will also need follow-up with either orthopedics or our interventional PM&R for further work-up and treatment of bilateral knee osteoarthritis. X-rays did show that she has mild disease bilaterally but the patient does complain of significant pain and buckling at times. States that she has had some injections in the past but did not feel like they were effective. Buckling could be due to meniscus injury, would defer to outpatient for further work-up and treatment considerations. Follow up with: PRIMARY CARE,MD [Primary Care Provider] - 7 Days Prescriptions: AtorvaSTATin [Lipitor] 20 mg PO QHS #30 tablet amLODIPine 10 mg PO QDAY #30 tablet Docusate Sodium [Colace CAP] 100 mg PO DAILY #30 capsule Losartan [Cozaar] 50 mg PO QDAY #30 tablet Diclofenac 1% [Diclofenac 1% topical gel] 1 applic TP TID PRN #1 tube PRN Reason: Pain, Mild (1-3) Butalb/Acetamin/Caff 50-325-40 [Fioricet 50-325-40] 1 tab PO Q6H PRN #15 tablet PRN Reason: Headache hydroCHLOROthiazide [HCTZ] 12.5 mg PO QDAY #30 capsule HYDROcodone/APAP 5-325 [Coleman 5-325 mg TAB] 1 each PO Q6H PRN #20 tablet PRN Reason: Pain, Moderate (4-6) Levothyroxine [Synthroid] 250 mcg PO DAILY@0600 #60 tablet
[2022-05-01] MEDS: BUTALB/ACETAMINOPHEN/CAFFEINE TAB PO PRN ×2 (08:46→16:56)
[2022-05-01] MEDS: DICLOFENAC SODIUM 1% TOPICAL GEL 100 GM TP SCH ×2 (09:36→14:36)
[2022-05-01] MEDS: hydroCHLOROthiazide 12.5 MG CAP PO SCH (11:23)
[2022-05-01] MEDS: amLODIPine 10 MG TAB PO SCH (11:23)
[2022-05-01] MEDS: LOSARTAN 50 MG TAB PO SCH (11:23)
[2022-05-01] MEDS: DOCUSATE SODIUM 100 MG CAP PO SCH (11:24)
[2022-05-01 18:04] VITALS: BP 129/87
== END 2022-05-01 18:31 | disposition home or self-care (01) | DRG 57 ==
LOC: 4A 11:59 → UNDOADMIN 11:59 → 4A 04-18 04:24
PROVIDERS: ADMIT Physical Medicine & Rehabilitation; ATTEND Physical Medicine & Rehabilitation
DX: I69.154 Hemiplegia and hemiparesis following nontraumatic intracerebral hemorrhage affecting left non-dominant side (principal); N39.0 Urinary tract infection, site not specified; E03.9 Hypothyroidism, unspecified; I25.10 Atherosclerotic heart disease of native coronary artery without angina pectoris; I10 Essential (primary) hypertension; G43.909 Migraine, unspecified, not intractable, without status migrainosus; M17.0 Bilateral primary osteoarthritis of knee; R26.9 Unspecified abnormalities of gait and mobility; R53.81 Other malaise; R53.83 Other fatigue; K59.00 Constipation, unspecified; E86.9 Volume depletion, unspecified; Z82.49 Family history of ischemic heart disease and other diseases of the circulatory system
CPT/HCPCS: 36415; 80048; 80053; 81001; 85025; 85027; 87086; G0378